=== PATIENT | male | born 1930 | race Caucasian/White ===

== ENCOUNTER 2017-05-24 21:28 | Inpatient (IN) ==
[2017-05-24] MEDS ORDERED: ONDANSETRON 4 MG/2 ML INJECTION IVP PRN (21:34)
--- OUTSIDE RECORDS SUMMARY | 2017-05-24 22:53 | External Medical Summary | CCD ---
:1930 Author Name ELIZABETH ROUSE Address [address] [place] [phone] Care Team Providers Name Role Phone NBA [place] Attending Physician Unavailable Vital Signs Unknown or Not Available. Allergies Unknown or Not Available. Procedures Unknown or Not Available. History of Immunizations Unknown or Not Available. Problems Unknown or Not Available. Results CBC W/ DIFF - Collect Date/Time: 09/19/2016 10:50 Test Name Code Test Result Test Units Test Ref Range WBC 7.7 x10^3 L=4.8 H=10.8 RBC 4.37 x10^6 L=4.70 H=6.10 HEMOGLOBIN 13.5 g/dL L=14.0 H=18.0 HEMATOCRIT 40.9 % L=42.0 H=52.0 MCV 94 fL L=80 H=100 MCH 30.8 pg L=27.0 H=33.0 MCHC 33.0 g/dL L=33.0 H=37.0 RDW 14.5 % L=11.5 H=14.5 PLATELETS 345 x10^3 L=150 H=450 MPV 7.5 fL L=7.8 H=11.0 NEUTROPHILS 72.5 % L=40.0 H=80.0 LYMPHOCYTES 17.9 % L=20.0 H=45.0 MONOCYTES 8.7 % L=0.0 H=10.0 EOSINOPHILS 0.5 % L=0.0 H=5.0 BASOPHILS 0.4 % L=0.0 H=2.0 REFLEX MAN DIFF NO N/A PT/INR - Collect Date/Time: 09/19/2016 10:50 Test Name Code Test Result Test Units Test Ref Range PT 16.7 Secs L=9.4 H=11.0 INR 1.66 L=0.00 H=4.00 Active Medications Unknown or Not Available. Medications Administered During Visit Unknown or Not Available. Encounters Encounter Diagnosis Diagnosis Code Start Date Anemia, unspecified D649 09/19/2016 Social History Smoking Status Code Start Date End Date Never smoker [id number] Patient Decision Aids Unknown or Not Available. Discharge Instructions You were admitted to [facility] on 09/19/2016 11:30 with a principal diagnosis of Anemia, unspecified You had the following tests done: CBC W/ DIFF PT/INR You were discharged from [facility] on 09/19/2016 11:31 Should you have any questions prior to discharge, please contact a member of your healthcare team. If you have left the hospital and have any questions, please contact your primary care physician. Chief Complaint and Reason For Visit Chief Complaint Date of Onset LAB Function Status Unknown or Not Available. Plan of Care Unknown or Not Available. Referral/Transition of Care Unknown or Not Available.
--- OUTSIDE RECORDS SUMMARY | 2017-05-24 22:53 | External Medical Summary | Referral Summary ---
:1930 Author Organization [facility] Address [address] [place] [address] Care Team Providers Name Role Phone Clinton Foley Primary Care Physician Encounter [facility] [id number] Date(s): 02/11/15 - 02/11/15 [facility] [address] [place] [address]- [place] Discharge Diagnosis: Neoplasm of uncertain behavior Discharge Diagnosis: Basal cell carcinoma Discharge Diagnosis: Neoplasm of uncertain behavior Discharge Diagnosis: Encounter for removal of sutures Discharge Disposition: 01-Home or Self Care Attending Physician: Vishnu Londono MD Admitting Physician: Vishnu Londono MD Vital Signs Most recent to oldest [Reference Range]: 1 Temperature Oral [35.8-37.3 degC] 36.6 degC (02/11/15 12:57 PM) Blood Pressure [90-140/60-90 mmHg] 110/74 mmHg (02/11/15 12:57 PM) Problem List Condition Effective Dates Status Health Status Informant Hypothyroidism(Confirmed) Resolved Blood clot(Confirmed)1 Resolved Deep venous thrombosis right Active leg(Confirmed)2 Dementia(Confirmed) Resolved Diverticulosis(Confirmed) Resolved Fall from roof no injury(Confirmed)3 Active Fatigue-benign and Active multifactorial(Confirmed)4 Hearing loss(Confirmed) Resolved Hernia(Confirmed)5 Resolved Hypercholesterolemia(Confirmed) Resolved Hyperlipidemia(Confirmed) Resolved Hyperplasia of prostate(Confirmed)6 Resolved Hypertrophy of prostate w/o urinary Active obstruction(Confirmed)7 Pulmonary embolism(Confirmed) Resolved Benign keratoses(Confirmed)8 Active HAQ-ftemjffoci-crrhxd(Confirmed)9 Active Spinal stenosis(Confirmed) Resolved 1Blood Clots in right qdh9Ejy conversion document.3See conversion document.4See conversion document.3q58Dfjkzvbtyix prostate w/o urinary qixpjdzwsuh2mix NextGen.8See conversion document.9See conversion document. Allergies, Adverse Reactions, Alerts Substance Reaction Severity Status acetaminophen-HYDROcodone Adverse Reaction Medium Active memantine Weakness Active Medications Aricept 10 mg oral tablet 1 tabs, Oral, Daily, # 90 tabs, 3 Refill(s), Pharmacy: [facility], 1 tabs Oral Daily Start Date: 10/15/14 Status: OrderedExelon 9.5 mg/24 hr transdermal film, extended release 1 patches, TransDermal, Daily, # 90 patches, 3 Refill(s), Pharmacy: [facility] Start Date: 10/15/14 Status: Orderedmultivitamin 1 tabs, Oral, Daily, 0 Refill(s) Start Date: 04/21/14 Status: OrderedTylenol Extra Strength 325 mg, Take 2 tabs po bid prn, 0 Refill(s) Start Date: 04/21/14 Status: Orderedwarfarin 3 mg oral tablet See Instructions, 1 tabs Oral 5 days/wk as directed, # 90 tabs, 3 Refill(s), Pharmacy: [facility], 1 tabs Oral 5 days/wk as directed Start Date: 07/20/15 Status: Orderedwarfarin 4 mg oral tablet 1 tabs, Oral, Daily, # 90 tabs, 3 Refill(s), Pharmacy: [facility], 1 tabs Oral Daily Start Date: 10/15/14 Status: Orderedwarfarin 4 mg oral tablet 4 mg 1 tabs, Oral, Mon/We/Fr, # 60 tabs, 0 Refill(s), Pharmacy: [facility], 1 tabs Oral Mon/We/Fr Start Date: 04/14/15 Status: Orderedwarfarin 5 mg oral tablet 1 tabs, Oral, Daily, # 90 tabs, 2 Refill(s), Pharmacy: [facility], 1 tabs Oral Daily Start Date: 07/07/14 Status: Ordered Results No data available for this section Immunizations Vaccine Date Refusal Reason influenza virus vaccine, inactivated 05/30/15 pneumococcal 13-valent conjugate vaccine 09/28/14 pneumococcal 23-polyvalent vaccine 02/20/05 tetanus/diphtheria/pertussis, acel(Tdap) 03/29/14 Procedures Procedure Date Related Diagnosis Body Site Biopsy of skin, subcutaneous tissue and/or mucous 02/11/15 membrane (including simple closure), unless otherwise listed; single lesion Biopsy of skin, subcutaneous tissue and/or mucous 02/11/15 membrane (including simple closure), unless otherwise listed; single lesion Biopsy of skin, subcutaneous tissue and/or mucous 02/11/15 membrane (including simple closure), unless otherwise listed; single lesion Excision, malignant lesion including margins, 02/11/15 trunk, arms, or legs; excised diameter 2.1 to 3.0 cm Repair, intermediate, wounds of scalp, axillae, 02/11/15 trunk and/or extremities (excluding hands and feet); 2.6 cm to 7.5 cm.. Circumcision1 Colonoscopy2 Orchiectomy3 Tonsillectomy 1aqocpf4bqvz in January, NO polyps seen.3right Social History Social History Type Response Smoking Status Never smoker Assessment and Plan Extracted from: Title: Office Visit Note Author: Vishnu Londono MD Date: 02/11/15 Assessment/Plan 1.Basal cell carcinoma I excised the 1.4x1 cm scar site with 0.4 cm margins on the right mid back area. Excised diameter was 2.2x 1.8cm. I did an intermediate layered closure with buried 4-0 P DS and top 4-0 Prolene sutures with a final wound repair length of 4.5cm. [place] and wants to have his stitches out locally around - 23 February. He'll follow-up in 6 months for skin exam or sooner for any problems Options/risks/benefits of the procedure were discussed and explained and consent was obtained. Specifically discussed risks of scarring, abnormal scarring, skin changes such as color or texture jorge ges, recurrence, incomplete removal, bleeding, infection, need for further treatment, and other unexpected risks/outcomes of these types of skin procedures. Final timeout performed. Site(s) for exci bennie were prepared by cleaning and injecting each site with <5cc of buffered lidocaine with epi 1:100,000. Site was excised with margins with scalpel/scissors/forceps in usual fashion to the level of the subcutaneous fat. Wound edges were undermined. Hemostasis was obtained with hyfrecation as needed. Layered closure was performed with buried absorbable dermal sutures and top nonabsorbable sutures. Ointment and bandages placed where needed. Wound care instructions given. Ordered: Exc Mal Les Trunk Arm Leg 2.1-3.0cm 59110 Intermediate Repair Wounds; Scalp Trunk Extremities 2.6-7.5cm 67021 2.Neoplasm of uncertain behavior Rule out nonmelanoma skin cancer near the left vertex. Shave biopsy today. I can excise the site if necessary. Options/risks/benefits of the procedure were discussed and explained and consent was obtained. Specifically discussed risks of scarring, abnormal scarring, skin changes such as color or texture jorge ges, recurrence, bleeding, infection, need for further treatment, and other unexpected risks/outcomes of these types of skin procedures. Final timeout performed. Site(s) for biopsy were prepared by cleaning and injecting each site with <1cc of buffered lidocaine with epi 1: 100,000. Site(s) were removed with shave blade in usual fashion. Hemostasis was obtained with drysol and/or hyfrecation as needed. Ointment and bandages placed where needed. Wound care instructions given Ordered: Biopsy Of Skin, Single Lesion [id number]
--- OUTSIDE RECORDS SUMMARY | 2017-05-24 22:53 | External Medical Summary | Referral Summary ---
:1930 Author Organization [facility] Address [address] [place] [address] Care Team Providers Name Role Phone Clinton Foley Primary Care Physician Encounter [facility] Date(s): 05/30/15 - 05/30/15 [facility] [address], [place] [address] Discharge Diagnosis: Hyperlipidemia Discharge Diagnosis: Medicare annual wellness visit, subsequent Discharge Diagnosis: Deep venous thrombosis of leg Discharge Diagnosis: Hypothyroidism Discharge Disposition: 01-Home or Self Care Attending Physician: Clinton Foley MD Admitting Physician: Clinton Foley MD Referring Physician: Clinton Foley MD Vital Signs Most recent to oldest [Reference Range]: 1 Peripheral Pulse Rate [60-100 bpm] 64 bpm (05/30/15 9:14 AM) Blood Pressure [90-140/60-90 mmHg] 110/76 mmHg (05/30/15 9:14 AM) Problem List Condition Effective Dates Status Health Status Informant Hypothyroidism(Confirmed) Resolved Blood clot(Confirmed)1 Resolved Deep venous thrombosis right Active leg(Confirmed)2 Dementia(Confirmed) Resolved Diverticulosis(Confirmed) Resolved Fall from roof no injury(Confirmed)3 Active Fatigue-benign and Active multifactorial(Confirmed)4 Hearing loss(Confirmed) Resolved Hernia(Confirmed)5 Resolved Hypercholesterolemia(Confirmed) Resolved Hyperlipidemia(Confirmed) Resolved Hyperplasia of prostate(Confirmed)6 Resolved Hypertrophy of prostate w/o urinary Active obstruction(Confirmed)7 Pulmonary embolism(Confirmed) Resolved Benign keratoses(Confirmed)8 Active TTU-nxhcpvzifc-xiadij(Confirmed)9 Active Spinal stenosis(Confirmed) Resolved 1Blood Clots in right jod2Lwz conversion document.3See conversion document.4See conversion document.1x84Pswmuhcwupc prostate w/o urinary oecuzyylwst4gxn NextGen.8See conversion document.9See conversion document. Allergies, Adverse Reactions, Alerts Substance Reaction Severity Status acetaminophen-HYDROcodone Adverse Reaction Medium Active memantine Weakness Active Medications Aricept 10 mg oral tablet 1 tabs, Oral, Daily, # 90 tabs, 3 Refill(s), Pharmacy: [facility], 1 tabs Oral Daily Start Date: 10/15/14 Status: OrderedExelon 9.5 mg/24 hr transdermal film, extended release 1 patches, TransDermal, Daily, # 90 patches, 3 Refill(s), Pharmacy: [facility] Start Date: 10/15/14 Status: Orderedmultivitamin 1 tabs, Oral, Daily, 0 Refill(s) Start Date: 04/21/14 Status: OrderedTylenol Extra Strength 325 mg, Take 2 tabs po bid prn, 0 Refill(s) Start Date: 04/21/14 Status: Orderedwarfarin 3 mg oral tablet 3 mg 1 tabs, Oral, Mon/Thurs, # 30 tabs, 2 Refill(s), Pharmacy: [facility] RX FOR THE 4 MG WARFARIN, 1 tabs Oral Mon/Thurs Start Date: 04/14/15 Status: Orderedwarfarin 4 mg oral tablet 1 tabs, Oral, Daily, # 90 tabs, 3 Refill(s), Pharmacy: [facility], 1 tabs Oral Daily Start Date: 10/15/14 Status: Orderedwarfarin 4 mg oral tablet 4 mg 1 tabs, Oral, Mon/We/Fr, # 60 tabs, 0 Refill(s), Pharmacy: [facility], 1 tabs Oral Mon/We/Fr Start Date: 04/14/15 Status: Orderedwarfarin 5 mg oral tablet 1 tabs, Oral, Daily, # 90 tabs, 2 Refill(s), Pharmacy: [facility], 1 tabs Oral Daily Start Date: 07/07/14 Status: Ordered Results Hematology Most recent to oldest [Reference Range]: 1 WBC [4.8-10.8 10*3/uL] 7.3 10*3/uL (05/30/15 10:37 AM) RBC [4.60-6.20] 4.93 (05/30/15 10:37 AM) Hgb [14.0-18.0 gm/dL] 16.0 gm/dL (05/30/15 10:37 AM) Hct [42.0-52.0 %] 45.3 % (05/30/15 10:37 AM) MCV [82.0-99.0 fL] 91.9 fL (05/30/15 10:37 AM) MCH [27.0-32.0 pg] 32.5 pg *HI* (05/30/15 10:37 AM) MCHC [32.0-36.0 gm/dL] 35.3 gm/dL (05/30/15 10:37 AM) RDW [11.5-14.5 %] 13.8 % (05/30/15 10:37 AM) Platelet [150-400 10*3/uL] 179 10*3/uL (05/30/15 10:37 AM) MPV [8.8-14.8 fL] 10.0 fL (05/30/15 10:37 AM) Immature Granulocytes [0.0-1.0 %] 0.3 % (05/30/15 10:37 AM) Neutrophils [51-75 %] 57 % (05/30/15 10:37 AM) Lymphocytes [20-46 %] 32 % (05/30/15 10:37 AM) Monocytes [4-11 %] 10 % (05/30/15 10:37 AM) Eosinophils [0-4 %] 1 % (05/30/15 10:37 AM) Basophils [0-2 %] 0 % (05/30/15 10:37 AM) Neutro Absolute [1.90-7.00 10*3] 4.14 10*3 (05/30/15 10:37 AM) Lymph Absolute [0.80-3.30 10*3] 2.29 10*3 (05/30/15 10:37 AM) [place] Absolute [0.30-1.00 10*3] 0.71 10*3 (05/30/15 10:37 AM) Eos Absolute [0.00-0.50 10*3] 0.09 10*3 (05/30/15 10:37 AM) Baso Absolute [0.00-0.20 10*3] 0.02 10*3 (05/30/15 10:37 AM) Chemistry Most recent to oldest [Reference Range]: 1 Sodium Lvl [135-144 mEq/L] 141 mEq/L (05/30/15 10:37 AM) Potassium Lvl [3.5-5.2 mEq/L] 4.6 mEq/L (05/30/15 10:37 AM) Chloride [99-111 mEq/L] 111 mEq/L (05/30/15 10:37 AM) CO2 [23-31 mEq/L] 19 mEq/L *LOW* (05/30/15 10:37 AM) AGAP [3-20] 11 (05/30/15 10:37 AM) BUN [8-26 mg/dL] 19 mg/dL (05/30/15 10:37 AM) Glucose Lvl [70-99 mg/dL] 90 mg/dL (05/30/15 10:37 AM) Creatinine Lvl [0.72-1.25 mg/dL] 1.02 mg/dL (05/30/15 10:37 AM) eGFR [>60 mL/min] >60 mL/min 1 (05/30/15 10:37 AM) Calcium Lvl [8.9-10.5 mg/dL] 9.7 mg/dL (05/30/15 10:37 AM) Albumin Lvl [3.4-4.8 gm/dL] 4.0 gm/dL (05/30/15 10:37 AM) Total Protein [6.2-8.1 gm/dL] 7.3 gm/dL (05/30/15 10:37 AM) Globulin [1.8-4.0 gm/dL] 3.3 gm/dL (05/30/15 10:37 AM) ALT [0-55 U/L] 21 U/L (05/30/15 10:37 AM) AST [5-34 U/L] 27 U/L 2 (05/30/15 10:37 AM) Alk Phos [40-150 U/L] 60 U/L (05/30/15 10:37 AM) Bili Total [0.2-1.2 mg/dL] 0.7 mg/dL (05/30/15 10:37 AM) Chol [0-199 mg/dL] 195 mg/dL (05/30/15 10:37 AM) Trig [0-149 mg/dL] 176 mg/dL *HI* (05/30/15 10:37 AM) HDL [40-84 mg/dL] 48 mg/dL (05/30/15 10:37 AM) LDL [0-130 mg/dL] 112 mg/dL (05/30/15 10:37 AM) VLDL Cholesterol [0-28 mg/dL] 35 mg/dL *HI* (05/30/15 10:37 AM) Cardiac Risk [0.0-5.7] 4.1 (05/30/15 10:37 AM) TSH with Reflex Free T4 [0.35-4.94] 3.61 (05/30/15 10:37 AM) 1Result Comment: Multiply eGFR results by 1.21 for race.2Result Comment: Specimen slighly hemolyzed. LDH, AST and Direct Bilirubin may be affected. Immunizations Vaccine Date Refusal Reason influenza virus vaccine, inactivated 05/30/15 pneumococcal 13-valent conjugate vaccine 09/28/14 pneumococcal 23-polyvalent vaccine 02/20/05 tetanus/diphtheria/pertussis, acel(Tdap) 03/29/14 Procedures Procedure Date Related Diagnosis Body Site Circumcision1 Colonoscopy2 Orchiectomy3 Tonsillectomy [id number] in January, NO polyps seen.3right Social History Social History Type Response Smoking Status Never smoker Assessment and Plan Extracted from: Title: Office Visit Note Author: Clinton Foley MD Date: 05/30/15 Assessment/Plan Deep venous thrombosis of leg 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 Ordered: CBC w/ Differential Return to Clinic Hyperlipidemia Lipid profile to be done this morning and I'll let him know the results. Ordered: Comprehensive Metabolic Panel Lipid Panel Office Visit Level 4 Est [id number] Return to Clinic Hypothyroidism Thyroid level will be checked today and I'll adjust his thyroid replacement therapy accordingly. Ordered: Comprehensive Metabolic Panel Office Visit Level 4 Est 68711 Return to Clinic TSH with Reflex Free T4 Medicare annual wellness visit, subsequent We are completing the Medicare annual wellness evaluation at the present time. Were giving him his flu shot. He's had the Prevnar 13. If all of his l ab looks okay Eduardo see him back in 6 months or as needed. Otherwise I did accomplish his annual history and physical exam today. Ordered: Annual Wellness exam Subsequent [id number] Referrals to Other Providers Referred by: Clinton Foley MD
--- OUTSIDE RECORDS SUMMARY | 2017-05-24 22:53 | External Medical Summary | Referral Summary ---
:1930 Author Organization [facility] Address [address] [place] [address] Care Team Providers Name Role Phone Clinton Foley Primary Care Physician Encounter [facility] Date(s): 09/09/16 - 09/24/16 [facility] [address] [place] [address]- [place] Discharge Disposition: 01-Home or Self Care Attending Physician: Vishnu Law MD Admitting Physician: Vishnu Law MD Vital Signs No data available for this section Problem List Condition Effective Dates Status Health Status Informant Acute pain(Confirmed) Active At risk for infection(Confirmed)1 Active At risk of pressure sore(Confirmed) Active Hypothyroidism(Confirmed) Resolved Blood clot(Confirmed)2 Resolved Cardiac disorder(Confirmed)3 Active Deep venous thrombosis right Active leg(Confirmed)4 Dementia(Confirmed) Resolved Diverticulosis(Confirmed) Resolved Fall from roof no injury(Confirmed)5 Active Hearing loss(Confirmed) Resolved Hernia(Confirmed)6 Resolved Hyperplasia of prostate(Confirmed)7 Resolved Hypertrophy of prostate w/o urinary Active obstruction(Confirmed)8 Hyperlipidemia(Confirmed) Resolved Pulmonary embolism(Confirmed) Resolved Benign keratoses(Confirmed)9 Active Spinal stenosis(Confirmed) Resolved 1Problem added automatically by system based on initiation of At Risk for Infection in Nutrition Planof Srky0Bbmgt Clots in right rse6Okkizxb added automatically by system based on initiation of Cardiac Output/Ineffective Cardiac Perfusion Plan of Ukgm5Dor conversion document.5See conversion document.2n99Huhtofmmymc prostate w/o urinary dlqrkbaxccp8mxi NextGen.9See conversion document. Allergies, Adverse Reactions, Alerts Substance Reaction Severity Status acetaminophen-HYDROcodone Adverse Reaction Medium Active memantine Weakness Active Medications aspirin 81 mg oral tablet, chewable 81 mg 1 tabs, Oral, Daily, 0 Refill(s) Start Date: 09/14/16 Status: OrderedCardizem CD 180 mg/24 hours oral capsule, extended release 180 mg 1 caps, Oral, Daily, # 30 caps, 0 Refill(s), Pharmacy: [facility] , 1 caps Oral Daily Start Date: 09/14/16 Status: OrderedCoumadin 5 mg oral tablet 5 mg 1 tabs, Oral, Daily, # 30 tabs, 0 Refill(s), Pharmacy: [facility], 1 tabs Oral Daily Start Date: 09/14/16 Status: Ordereddonepezil 10 mg oral tablet 10 mg 1 tabs, Oral, Bedtime (once a day), # 30 tabs, 0 Refill(s) Start Date: 09/09/16 Status: OrderedLovenox 100 mg/mL injectable solution 100 mg 1 mL, SubCutaneous, q12hr, # 10 Each, 0 Refill(s), other reason (Rx) Start Date: 09/14/16 Status: OrderedMiraLax 17 g 1 packets, Oral, Daily, 0 Refill(s) Start Date: 09/14/16 Status: Orderedmultivitamin 1 tabs, Oral, Daily, 0 Refill(s) Start Date: 04/21/14 Status: Orderedrivastigmine 9.5 mg/24 hr transdermal film, extended release 1 patches, TransDermal, Daily, # 90 patches, 2 Refill(s), Pharmacy: [facility] Start Date: 09/17/16 Status: Ordered Results No data available for this section Immunizations Given and Recorded Vaccine Date Status Refusal Reason influenza virus vaccine, inactivated 05/30/15 Given pneumococcal 13-valent conjugate vaccine 09/28/14 Given pneumococcal 23-polyvalent vaccine 02/20/05 Recorded tetanus/diphtheria/pertussis, acel(Tdap) 03/29/14 Recorded Procedures Procedure Date Related Diagnosis Body Site Cholecystectomy Laparoscopic1 09/12/16 Laparoscopy, surgical; cholecystectomy.. 09/12/16 Catheterization Left Heart with Coronary 09/11/16 Angiography2 Circumcision3 Colonoscopy4 History of hernia repair Open fracture of upper arm Orchiectomy5 Repair of hip Tonsillectomy 1auto-populated from documented surgical [id number] from documented surgical [id number] in January, NO polyps seen.5right Social History Social History Type Response Smoking Status Never smoker Assessment and Plan No data available for this section
--- OUTSIDE RECORDS SUMMARY | 2017-05-24 22:53 | External Medical Summary | Referral Summary ---
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 Discharge Diagnosis: AK (actinic keratosis) Discharge Disposition: 01-Home or Self Care Attending Physician: Vishnu Londono MD Admitting Physician: Vishnu Londono MD Referring Physician: Clinton Foley MD Vital Signs No data available for [...] obstruction(Confirmed)7 Pulmonary embolism(Confirmed) Resolved Benign keratoses(Confirmed)8 Active APD-ekeqitxovh-txrzvi(Confirmed)9 Active Spinal stenosis(Confirmed) Resolved 1Blood Clots in right fwx8Vwk conversion document.3See conversion document.4See conversion document.8c62Eydlzvpszlz prostate w/o urinary ratoqxgwxfc2nqf NextGen.8See conversion document.9See conversion document. Allergies, Adverse Reactions, Alerts Substance Reaction Severity Status acetaminophen-HYDROcodone Adverse Reaction Medium Active memantine Weakness Active Medications Aricept 10 mg oral tablet 10 mg 1 tabs, Oral, Daily, # 90 tabs, 3 Refill(s), Pharmacy: [facility], 1 tabs Oral Daily Start Date: 10/31/15 Status: OrderedExelon 9.5 mg/24 hr transdermal film, extended release 1 patches, TransDermal, Daily, # 90 patches, 3 Refill(s), Pharmacy: [facility] Start Date: 10/31/15 Status: Orderedmultivitamin 1 tabs, Oral, Daily, 0 Refill(s) Start Date: 04/21/14 Status: OrderedTylenol Extra Strength 325 mg, Take 2 tabs po bid prn, 0 Refill(s) Start Date: 04/21/14 Status: Orderedwarfarin 3 mg oral tablet See Instructions, 1 tabs Oral 5 days/wk as directed, # 90 tabs, 3 Refill(s), Pharmacy: [facility], 1 tabs Oral 5 days/wk as directed Start Date: 10/31/15 Status: Orderedwarfarin 4 mg oral tablet 4 mg 1 tabs, Oral, Sat/, # 60 tabs, 0 Refill(s), Pharmacy: [facility], 1 tabs Oral Sat/ Start Date: 04/14/15 Status: Ordered Results No data available for this section Immunizations Vaccine Date Refusal Reason influenza virus vaccine, inactivated 05/30/15 pneumococcal 13-valent conjugate vaccine 09/28/14 pneumococcal 23-polyvalent vaccine 02/20/05 tetanus/diphtheria/pertussis, acel(Tdap) 03/29/14 Procedures Procedure Date Related Diagnosis Body Site Destruction (eg, laser surgery, electrosurgery, 04/22/15 cryosurgery, chemosurgery, surgical curettement), premalignant lesions (eg, actinic keratoses); first lesion Destruction (eg, laser surgery, electrosurgery, 04/22/15 cryosurgery, chemosurgery, surgical curettement), premalignant lesions (eg, actinic keratoses); second through 14 lesions, each (List separately in addition to code for first lesion).. Circumcision1 Colonoscopy2 Orchiectomy3 Tonsillectomy 8ueetnx3ygob in January, NO polyps seen.3right Social History Social History Type Response Smoking Status Never smoker Assessment and Plan Extracted from: Title: Office Visit Note Author: Vishnu Londono MD Date: 04/22/15 Assessment/Plan 1.AK (actinic keratosis) We discussed field treatments for his scalp and face but he is not interested in any field treatment at this time and wants to do cryotherapy alone. I froze 9 AK's on th e scalp and face and neck with liquid nitrogen and he will follow-up in 6 months or sooner for any sites of concern Discussed diagnosis and prognosis and treatment of actinic keratoses. Patient elected for cryotherapy. Discussed options/risks/benefits of the procedure. Specifically discussed risks of scarring , abnormal scarring, skin changes such as color or texture changes, blistering , recurrence, bleeding, infection, need for further treatment, and other unexpected risks/outcomes of these types of skin pr ocedures. Patient expressed understanding and consented to the procedure(s). I froze [address] for approximately 5-7 seconds each. Wound care instructions given. Discussed/educated patie nt on sun protection measures, importance of sun protection, and need for self- skin examination. Recommended regular (at least yearly, or sooner if directed in other follow-up instructions) dermatolog y follow-up examinations due to high-risk of more AK's and risk of skin cancers , and recommend follow-up dermatology examination for any changing or concerning moles, growths, or skin changes of concern. Ordered: Destruction premalignant lesion 1st 44107 Destruction premalignant lesion 2-14, Each 20389 2.Squamous cell carcinoma in situ There is no obvious persistent or recurrent squamous cell carcinoma or scram cell carcinoma in situ at the scar site on the left scalp. He is not interested in further therapy at the site and prefers to monitor. We discussed options and risks in detail Ordered: Office Visit Level 3 Est 24215
--- OUTSIDE RECORDS SUMMARY | 2017-05-24 22:53 | External Medical Summary | CCD ---
:1930 Author Name ELIZABETH ROUSE Address [address], [place] [id number] Care Team Providers Name Role Phone LAY ARANGO Phu Attending Physician Unavailable Vital Signs Unknown or Not Available. Allergies Unknown or Not Available. Procedures Unknown or Not Available. History of Immunizations Unknown or Not Available. Problems Unknown or Not Available. Results COMP METABOLIC - Collect Date/Time: 09/17/2016 16:00 Test Name Code Test Result Test Units Test Ref Range GLUCOSE 102 mg/dL L=70 H=110 BUN 13 mg/dL L=7 H=18 CREATININE 1.05 mg/dL L=0.60 H=1.30 AGE 86 YEARS GFR 67.3 L=60.0 H=120 SODIUM 142 mmol/L L=136 H=145 POTASSIUM 4.1 mmol/L L=3.5 H=5.1 CHLORIDE 105 mmol/L L=98 H=107 CO2 26 mmol/L L=21 H=32 CALCIUM 9.0 mg/dL L=8.5 H=10.1 AST 431 U/L L=15 H=37 ALT 382 U/L L=12 H=78 ALKALINE PHOS 369 U/L L=46 H=116 TOTAL PROTEIN 6.7 g/dL L=6.4 H=8.2 ALBUMIN 2.8 g/dL L=3.4 H=5.0 TOTAL BILI 3.50 mg/dL L=0.00 H=1.00 CBC W/ DIFF - Collect Date/Time: 09/17/2016 16:00 Test Name Code Test Result Test Units Test Ref Range WBC 6.4 x10^3 L=4.8 H=10.8 RBC 4.36 x10^6 L=4.70 H=6.10 HEMOGLOBIN 13.5 g/dL L=14.0 H=18.0 HEMATOCRIT 41.1 % L=42.0 H=52.0 MCV 94 fL L=80 H=100 MCH 30.9 pg L=27.0 H=33.0 MCHC 32.9 g/dL L=33.0 H=37.0 RDW 13.8 % L=11.5 H=14.5 PLATELETS 291 x10^3 L=150 H=450 MPV 7.6 fL L=7.8 H=11.0 NEUTROPHILS 64.5 % L=40.0 H=80.0 LYMPHOCYTES 25.4 % L=20.0 H=45.0 MONOCYTES 8.1 % L=0.0 H=10.0 EOSINOPHILS 1.1 % L=0.0 H=5.0 BASOPHILS 0.9 % L=0.0 H=2.0 REFLEX MAN DIFF NO N/A PT/INR - Collect Date/Time: 09/17/2016 16:00 Test Name Code Test Result Test Units Test Ref Range PT 18.9 Secs L=9.4 H=11.0 INR 1.87 L=0.00 H=4.00 Active Medications Unknown or Not Available. Medications Administered During Visit Unknown or Not Available. Encounters Unknown or Not Available. Social History Smoking Status Code Start Date End Date Never smoker [id number] Patient Decision Aids Unknown or Not Available. Discharge Instructions You were admitted to [facility] on 09/17/2016 16:39 You had the following tests done: CBC W/ DIFF COMP METABOLIC PT/INR You were discharged from [facility] on 09/17/2016 16:39 Should you have any questions prior to [...]
--- OUTSIDE RECORDS SUMMARY | 2017-05-24 22:53 | External Medical Summary | Referral Summary ---
:1930 Author Organization [facility] Address [address] [place] [address] Care Team Providers Name Role Phone Clinton Foley Primary Care Physician Encounter VC Date(s): 06/04/16 - 06/04/16 [facility] [address] [place] [address]- [place] Discharge Diagnosis: Hyperlipidemia Discharge Diagnosis: Spinal stenosis Discharge Diagnosis: Long-Term (Current) Use of Anticoagulants Discharge Diagnosis: Hypothyroidism Discharge Diagnosis: Medicare annual wellness visit, subsequent Discharge Disposition: 01-Home or Self Care Attending Physician: Clinton Foley MD Admitting Physician: Clinton Foley MD Vital Signs Most recent to oldest [Reference Range]: 1 Peripheral Pulse Rate [60-100 bpm] 68 bpm (06/04/16 10:20 AM) Blood Pressure [90-140/60-90 mmHg] 110/70 mmHg (06/04/16 10:20 AM) Problem List Condition Effective Dates Status Health Status Informant Hypothyroidism(Confirmed) Resolved Blood clot(Confirmed)1 Resolved Deep venous thrombosis right Active leg(Confirmed)2 Dementia(Confirmed) Resolved Diverticulosis(Confirmed) Resolved Fall from roof no injury(Confirmed)3 Active Fatigue-benign and Active multifactorial(Confirmed)4 Hearing loss(Confirmed) Resolved Hernia(Confirmed)5 Resolved Hypercholesterolemia(Confirmed) Resolved Hyperplasia of prostate(Confirmed)6 Resolved Hypertrophy of prostate w/o urinary Active obstruction(Confirmed)7 Hyperlipidemia(Confirmed) Resolved Pulmonary embolism(Confirmed) Resolved Benign keratoses(Confirmed)8 Active KOM-nqsmomtemv-lameeb(Confirmed)9 Active Spinal stenosis(Confirmed) Resolved 1Blood Clots in right cco0Cvn conversion document.3See conversion document.4See conversion document.6w05Ugudpbqfkim prostate w/o urinary ecsjzmkybzf7tjj NextGen.8See conversion document.9See conversion document. Allergies, Adverse Reactions, Alerts Substance Reaction Severity Status acetaminophen-HYDROcodone Adverse Reaction Medium Active memantine Weakness Active Medications Aricept 10 mg oral tablet 10 mg 1 tabs, Oral, Daily, # 90 tabs, 3 Refill(s), Pharmacy: [facility], 1 tabs Oral Daily Start Date: 10/31/15 Status: OrderedExelon 9.5 mg/24 hr transdermal film, extended release 1 patches, TransDermal, Daily, # 90 patches, 3 Refill(s), Pharmacy: [facility] Start Date: 10/31/15 Status: Orderedmultivitamin 1 tabs, Oral, Daily, 0 Refill(s) Start Date: 04/21/14 Status: OrderedTylenol Extra Strength 325 mg, Take 2 tabs po bid prn, 0 Refill(s) Start Date: 04/21/14 Status: Orderedwarfarin 3 mg oral tablet See Instructions, 1 tabs Oral 5 days/wk as directed, # 90 tabs, 3 Refill(s), Pharmacy: [facility], 1 tabs Oral 5 days/wk as directed Start Date: 10/31/15 Status: Orderedwarfarin 4 mg oral tablet 4 mg 1 tabs, Oral, Sat//, # 90 tabs, 3 Refill(s), Pharmacy: [facility], 1tabs Oral Sat// Start Date: 01/06/16 Status: Ordered Results Coagulation Most recent to oldest [Reference Range]: 1 INR [0.9-1.2] 1.5 *HI* (06/04/16 11:53 AM) Chemistry Most recent to oldest [Reference Range]: 1 Chol [0-199 mg/dL] 172 mg/dL (06/04/16 11:53 AM) Trig [0-149 mg/dL] 105 mg/dL (06/04/16 11:53 AM) HDL [40-84 mg/dL] 45 mg/dL (06/04/16 11:53 AM) LDL [0-130 mg/dL] 106 mg/dL (06/04/16 11:53 AM) VLDL Cholesterol [0-28 mg/dL] 21 mg/dL (06/04/16 11:53 AM) Cardiac Risk [0.0-5.7] 3.8 (06/04/16 11:53 AM) Immunizations Vaccine Date Refusal Reason influenza virus vaccine, inactivated 05/30/15 pneumococcal 13-valent conjugate vaccine 09/28/14 pneumococcal 23-polyvalent vaccine 02/20/05 tetanus/diphtheria/pertussis, acel(Tdap) 03/29/14 Procedures Procedure Date Related Diagnosis Body Site Circumcision1 Colonoscopy2 Orchiectomy3 Tonsillectomy 5aaqiru7ezyf in January, NO polyps seen.3right Social History Social History Type Response Smoking Status Never smoker Assessment and Plan Extracted from: Title: Office Visit Note Author: Clinton Foley MD Date: 06/04/16 Assessment/Plan 1.Hyperlipidemia He'll have a lipid profile done today and I'll let him know the results. Ordered: Lipid Panel Office Visit Level 4 Est 23984 Return to Clinic 2.Hypothyroidism His last thyroid check was normal so I'll just wait and reevaluate this in 6 months. Ordered: Lipid Panel Office Visit Level 4 Est 81602 Return to Clinic 3.Long-Term (Current) Use of Anticoagulants INR to be done today and will forward thisto the cardiology department for treatmentorwarfarin dose adjustment as indicated. Ordered: Office Visit Level 4 Est 62013 PT Return to Clinic 4.Spinal stenosis Spinal stenosis problem stable and okay so no change in treatment. Ordered: Office Visit Level 4 Est 68744 Return to Clinic 5.Medicare annual wellness visit, subsequent We did complete the Medicare annual wellness evaluation. He's had his flu shot. He's had both pneumonia shots. His lab looks okay all see him ba ck in 6 months. I made no change in his medications today. I did accomplish his annual history and physical exam today. Ordered: Annual Wellness exam Subsequent G0439 Office Visit Level 4 Est 88695 Return to Clinic Referrals to Other Providers Referred by: Clinton Foley MD
--- OUTSIDE RECORDS SUMMARY | 2017-05-24 22:53 | External Medical Summary | CCD ---
:1930 Author Name ELIZABETH ROUSE Address [address], [place] [id number] Care Team Providers Name Role Phone NBA LAY Bay Attending Physician Unavailable Vital Signs Unknown or Not Available. Allergies Unknown or Not Available. Procedures Unknown or Not Available. History of Immunizations Unknown or Not Available. Problems Unknown or Not Available. Results PT/INR - Collect Date/Time: 09/24/2016 11:56 Test Name Code Test Result Test Units Test Ref Range PT 18.3 Secs L=9.4 H=11.0 INR 1.81 L=0.00 H=4.00 PT/INR - Collect Date/Time: 09/21/2016 13:30 Test Name Code Test Result Test Units Test Ref Range PT 16.8 Secs L=9.4 H=11.0 INR 1.67 L=0.00 H=4.00 Active Medications Unknown or Not Available. Medications Administered During Visit Unknown or Not Available. Encounters Encounter Diagnosis Diagnosis Code Start Date long term care pharmacist (current) use of Z7901 09/21/2016 anticoagulants Social History Smoking Status Code Start Date End Date Never smoker [id number] Patient Decision Aids Unknown or Not Available. Discharge Instructions You were admitted to [facility] on 09/21/2016 15:11 with a principal diagnosis of snf (current) use of anticoagulants You had the following tests done: PT/ INR PT/INR You were discharged from [facility] on 09/25/2016 23:59 Should you have any questions prior to discharge, please contact a member of your healthcare team. If you have left the hospital and have any questions, please contact your primary care physician. Chief Complaint and Reason For Visit Chief Complaint Date of Onset RECURRING LAB 09/24/2016 Function Status Unknown or Not Available. Plan of Care Unknown or Not Available. Referral/Transition of Care Unknown or Not Available.
--- OUTSIDE RECORDS SUMMARY | 2017-05-24 22:54 | External Medical Summary | Referral Summary ---
:1930 Author Organization [facility] Address [address] [place] [address] Care Team Providers Name Role Phone Clinton Foley Primary Care Physician Encounter VC Date(s): 01/09/16 - 01/09/16 [facility] [address] [place] [address]- [place] Discharge Diagnosis: Syncope Discharge Diagnosis: Hypothyroidism Discharge Diagnosis: Deep venous thrombosis of leg Discharge Diagnosis: Hyperlipidemia, mixed Discharge Disposition: 01-Home or Self Care Attending Physician: Clinton Foley MD Admitting Physician: Clinton Foley MD Referring Physician: Clinton Foley MD Vital Signs Most recent to oldest [Reference Range]: 1 Peripheral Pulse Rate [60-100 bpm] 60 bpm (01/09/16 10:26 AM) Blood Pressure [90-140/60-90 mmHg] 124/80 mmHg (01/09/16 10:26 AM) Problem List Condition Effective Dates Status Health Status Informant Hypothyroidism(Confirmed) Resolved Blood clot(Confirmed)1 Resolved Deep venous thrombosis right Active leg(Confirmed)2 Dementia(Confirmed) Resolved Diverticulosis(Confirmed) Resolved Fall from roof no injury(Confirmed)3 Active Fatigue-benign and Active multifactorial(Confirmed)4 Hearing loss(Confirmed) Resolved Hernia(Confirmed)5 Resolved Hypercholesterolemia(Confirmed) Resolved Hyperlipidemia(Confirmed) Resolved Hyperplasia of prostate(Confirmed)6 Resolved Hypertrophy of prostate w/o urinary Active obstruction(Confirmed)7 Pulmonary embolism(Confirmed) Resolved Benign keratoses(Confirmed)8 Active UQS-oqbfnubcdr-newovp(Confirmed)9 Active Spinal stenosis(Confirmed) Resolved 1Blood Clots in right elt3Mmd conversion document.3See conversion document.4See conversion document.3b85Sdwdnxmqnkl prostate w/o urinary oypefwuzwcd3mcv NextGen.8See conversion document.9See conversion document. Allergies, Adverse Reactions, Alerts Substance Reaction Severity Status acetaminophen-HYDROcodone Adverse Reaction Medium Active memantine Weakness Active Medications Aricept 10 mg oral tablet 10 mg 1 tabs, Oral, Daily, # 90 tabs, 3 Refill(s), Pharmacy: [facility], 1 tabs Oral Daily Start Date: 10/31/15 Status: OrderedExelon 9.5 mg/24 hr transdermal film, extended release 1 patches, TransDermal, Daily, # 90 patches, 3 Refill(s), Pharmacy: [facility] Start Date: 10/31/15 Status: Orderedmultivitamin 1 tabs, Oral, Daily, 0 Refill(s) Start Date: 04/21/14 Status: OrderedTylenol Extra Strength 325 mg, Take 2 tabs po bid prn, 0 Refill(s) Start Date: 04/21/14 Status: Orderedwarfarin 3 mg oral tablet See Instructions, 1 tabs Oral 5 days/wk as directed, # 90 tabs, 3 Refill(s), Pharmacy: [facility], 1 tabs Oral 5 days/wk as directed Start Date: 10/31/15 Status: Orderedwarfarin 4 mg oral tablet 4 mg 1 tabs, Oral, Sat//Fr, # 90 tabs, 3 Refill(s), Pharmacy: [facility], 1tabs Oral Sat// Start Date: 01/06/16 Status: Ordered Results Hematology Most recent to oldest [Reference Range]: 1 WBC [4.8-10.8 10*3/uL] 6.8 10*3/uL (01/09/16 11:26 AM) RBC [4.60-6.20] 4.85 (01/09/16 11:26 AM) Hgb [14.0-18.0 gm/dL] 15.8 gm/dL (01/09/16 11:26 AM) Hct [42.0-52.0 %] 46.0 % (01/09/16 11:26 AM) MCV [82.0-99.0 fL] 94.8 fL (6/13/16 11:26 AM) MCH [27.0-32.0 pg] 32.6 pg *HI* (01/09/16 AM) MCHC [32.0-36.0 gm/dL] 34.3 gm/dL (01/09/16: AM) RDW [11.5-14.5 %] 13.8 % (01/09/16: AM) Platelet [150-400 10*3/uL] 185 10*3/uL (01/09/16: AM) MPV [8.8-14.8 fL] 9.6 fL (01/09/16: AM) Immature Granulocytes [0.0-1.0 %] 0.1 % (01/09/16 AM) Neutrophils [51-75 %] 62 % (01/09/16 AM) Lymphocytes [20-46 %] 27 % (01/09/16 AM) Monocytes [4-11 %] 10 % (01/09/16 AM) Eosinophils [0-4 %] 1 % (01/09/16 AM) Basophils [0-2 %] 0 % (01/09/16: AM) Neutro Absolute [1.90-7.00 10*3] 4.25 10*3 (01/09/16: AM) Lymph Absolute [0.80-3.30 10*3] 1.84 10*3 (01/09/16: AM) [place] Absolute [0.30-1.00 10*3] 0.67 10*3 (01/09/16:26 AM) Eos Absolute [0.00-0.50 10*3] 0.04 10*3 (01/09/16:26 AM) Baso Absolute [0.00-0.20 10*3] 0.01 10*3 (01/09/16: AM) Chemistry Most recent to oldest [Reference Range]: 1 Sodium Lvl [135-144 mEq/L] 142 mEq/L (01/09/16:26 AM) Potassium Lvl [3.5-5.2 mEq/L] 4.2 mEq/L (01/09/16:26 AM) Chloride [99-111 mEq/L] 108 mEq/L (01/09/16 11:26 AM) CO2 [23-31 mEq/L] 24 mEq/L (01/09/16: AM) AGAP [3-20] 10 (01/09/16 11:26 AM) BUN [8-26 mg/dL] 21 mg/dL (01/09/16 11: AM) Glucose Lvl [70-99 mg/dL] 92 mg/dL (01/09/16: AM) Creatinine Lvl [0.72-1.25 mg/dL] 0.99 mg/dL (01/09/16 11:26 AM) eGFR [>60 mL/min] >60 mL/min 1 (01/09/16: AM) Calcium Lvl [8.9-10.5 mg/dL] 9.4 mg/dL (01/09/16: AM) Albumin Lvl [3.4-4.8 gm/dL] 4.1 gm/dL (01/09/16: AM) Total Protein [6.2-8.1 gm/dL] 6.7 gm/dL (01/09/16 11: AM) Globulin [1.8-4.0 gm/dL] 2.6 gm/dL (01/09/16 11: AM) ALT [0-55 U/L] 23 U/L (01/09/16: AM) AST [5-34 U/L] 23 U/L (01/09/16 11: AM) Alk Phos [40-150 U/L] 62 U/L (01/09/16 11:26 AM) Bili Total [0.2-1.2 mg/dL] 0.7 mg/dL (01/09/16 11: AM) TSH with Reflex Free T4 [0.35-4.94] 4.41 (01/09/16 11:26 AM) 1Result Comment: Multiply eGFR results by 1.21 for race. Immunizations Vaccine Date Refusal Reason influenza virus vaccine, inactivated 05/30/15 pneumococcal 13-valent conjugate vaccine 09/28/14 pneumococcal 23-polyvalent vaccine 02/20/05 tetanus/diphtheria/pertussis, acel(Tdap) 03/29/14 Procedures Procedure Date Related Diagnosis Body Site Circumcision1 Colonoscopy2 Orchiectomy3 Tonsillectomy [id number] in January, NO polyps seen.3right Social History Social History Type Response Smoking Status Never smoker Assessment and Plan Extracted from: Title: Office Visit Note Author: Clinton Foley MD Date: 01/09/16 Assessment/Plan 1.Syncope He had a syncopal episodethat may have just been due to some dehydration. However because he seemedslow to regain consciousnessI think he deserves at least some additional invest igation. I'll check his basic lab and get a 24-hour Holter monitor and I'll let him know the results. Otherwise his thinks he was dehydrated at that timeto some degree. I'll schedule him ba ck here in 6 months or sooner if the labor 24 Holter monitor indicated problem. Ordered: CBC w/ Differential Comprehensive Metabolic Panel Office Visit Level 4 Est 97385 TSH with Reflex Free T4 2.Deep venous thrombosis of leg He'll continue his warfarin in light of his history of DVT. Ordered: CBC w/ Differential Comprehensive Metabolic Panel Office Visit Level 4 Est 62665 Return to Clinic 3.Hypothyroidism I'll check his TSH level. Ordered: Office Visit Level 4 Est 53838 Return to Clinic TSH with Reflex Free T4 4.Hyperlipidemia, mixed His lipid status will be checked at a later date. He scheduled back in May for annual history and physical exam. Ordered: Comprehensive Metabolic Panel Office Visit Level 4 Est 32130 Return to Clinic TSH with Reflex Free T4 Referrals to Other Providers Referred by: Clinton Foley MD
--- OUTSIDE RECORDS SUMMARY | 2017-05-24 22:54 | External Medical Summary | Referral Summary ---
:1930 Author Organization [facility] Address [address] [place] [address] Care Team Providers Name Role Phone Clinton Foley Primary Care Physician Encounter VC Date(s): 01/09/16 - 01/09/16 [facility] [address] [place] [address] [place] Discharge Diagnosis: Syncope Discharge [...] obstruction(Confirmed)7 Pulmonary embolism(Confirmed) Resolved Benign keratoses(Confirmed)8 Active WGM-nweofbnrlj-pijidt(Confirmed)9 Active Spinal stenosis(Confirmed) Resolved 1Blood Clots in right tri3Dtm conversion document.3See conversion document.4See conversion document.6l15Gylnccgdwgl prostate w/o urinary tjzdwdhfsof2cya NextGen.8See conversion document.9See conversion document. Allergies, Adverse Reactions, Alerts Substance Reaction Severity Status acetaminophen-HYDROcodone Adverse Reaction Medium Active memantine Weakness Active Medications Aricept 10 mg oral tablet 10 mg 1 tabs, Oral, Daily, # 90 tabs, 3 Refill(s), Pharmacy: Pharmacy, 1 tabs Oral Daily Start Date: 10/31/15 Status: OrderedExelon 9.5 mg/24 hr transdermal film, extended release 1 patches, TransDermal, Daily, # 90 patches, 3 Refill(s), Pharmacy: Pharmacy Start Date: 10/31/15 Status: Orderedmultivitamin 1 tabs, Oral, Daily, 0 Refill(s) Start Date: 04/21/14 Status: OrderedTylenol Extra Strength 325 mg, Take 2 tabs po bid prn, 0 Refill(s) Start Date: 04/21/14 Status: Orderedwarfarin 3 mg oral tablet See Instructions, 1 tabs Oral 5 days/wk as directed, # 90 tabs, 3 Refill(s), Pharmacy: Pharmacy, 1 tabs Oral 5 days/wk as directed Start Date: 10/31/15 Status: Orderedwarfarin 4 mg oral tablet 4 mg 1 tabs, Oral, Sat//Fr, # 90 tabs, 3 Refill(s), Pharmacy: Pharmacy, 1tabs Oral Sat// Start Date: 01/06/16 [...] Absolute [0.80-3.30 10*3] 1.84 10*3 (01/09/16: AM) [place] Absolute [0.30-1.00 10*3] 0.67 10*3 (01/09/16:26 AM) [...] Diagnosis Body Site Circumcision1 Colonoscopy2 Orchiectomy3 Tonsillectomy 1fpxkju9hqyl in January, NO polyps seen.3right Social History [...] Metabolic Panel Office Visit Level 4 Est 36604 TSH with Reflex Free T4 2.Deep venous thrombosis of leg He'll continue his warfarin in light of his history of DVT. Ordered: CBC w/ Differential Comprehensive Metabolic Panel Office Visit Level 4 Est 48440 Return to Clinic 3.Hypothyroidism I'll check his TSH level. Ordered: Office Visit Level 4 Est 82559 Return to Clinic TSH with Reflex Free T4 4.Hyperlipidemia, mixed His lipid status will be checked at a later date. He scheduled back in May for annual history and physical exam. Ordered: Comprehensive Metabolic Panel Office Visit Level 4 Est 89875 Return to Clinic TSH with Reflex Free T4 Referrals to Other Providers Referred by: Clinton Foley MD
--- OUTSIDE RECORDS SUMMARY | 2017-05-24 22:54 | External Medical Summary | Referral Summary ---
:1930 Author Organization [facility] Address [address] [place] [address] Care Team Providers Name Role Phone Clinton Foley Primary Care Physician Encounter VC Date(s): 09/09/16 - 09/14/16 [facility] [address] [place] [address] Discharge Disposition: 01-Home or Self Care Attending Physician: Norah Houston DO Admitting Physician: Kimbelry Pollack MD Vital Signs Most recent to oldest [Reference Range]: 1 Temperature Oral [35.8-37.3 degC] 36.4 degC (09/14/16 8:07 AM) Temperature Temporal Artery [36.3-37.8 degC] 36.4 degC (09/12/16 2:14 PM) Peripheral Pulse Rate [60-100 bpm] 64 bpm (09/14/16 8:07 AM) Heart Rate Monitored [60-100 bpm] 102 bpm *HI* (09/12/16 5:29 PM) Respiratory Rate [14-20 br/min] 18 br/min (09/14/16 8:07 AM) Blood Pressure [90-140/60-90 mmHg] 115/70 mmHg (09/14/16 8:07 AM) Mean Arterial Pressure, Cuff 69 mmHg (09/12/16 6:31 PM) SpO2 92 % (09/14/16 8:07 AM) Remote Telemetry Ongoing (09/14/16 8:00 AM) Problem List Condition Effective Dates Status [...] At Risk for Infection in Nutrition Planof Cwgz7Bjpox Clots in right tqn2Qtrirkn added automatically by system based on initiation of Cardiac Output/Ineffective Cardiac Perfusion Plan of Iepu1Kxu conversion document.5See conversion document.2z86Fuwuntqrnfp prostate w/o urinary icyfozvxwpa7qto NextGen.9See conversion document. Allergies, Adverse Reactions, Alerts Substance Reaction Severity Status acetaminophen-HYDROcodone Adverse Reaction Medium Active memantine Weakness Active Medications aspirin 81 mg oral tablet, chewable 81 mg 1 tabs, Oral, Daily, 0 Refill(s) Start Date: 09/14/16 Status: OrderedCardizem CD 180 mg/24 hours oral capsule, extended release 180 mg 1 caps, Oral, Daily, # 30 caps, 0 Refill(s), Pharmacy: [facility] , 1 caps Oral Daily Start Date: 09/14/16 Status: OrderedCleocin HCl 300 mg oral capsule 300 mg 1 caps, Oral, q6hr, X 3 days, # 12 caps, 0 Refill(s), other reason (Rx) Start Date: 09/14/16 Stop Date: 09/17/16 Status: OrderedCoumadin 5 mg oral tablet 5 mg 1 tabs, Oral, Daily, # 30 tabs, 0 Refill(s), Pharmacy: [facility], 1 tabs Oral Daily Start Date: [...] extended release 1 patches, TransDermal, Daily, # 30 patches, 0 Refill(s) Start Date: 09/09/16 Status: Ordered Results Hematology Most recent to oldest [Reference Range]: 1 WBC [4.8-10.8 10*3/uL] 8.5 10*3/uL (09/14/16 5:19 AM) RBC [4.60-6.20] 3.78 *LOW* (09/14/16 5:19 AM) Hgb [14.0-18.0 gm/dL] 11.9 gm/dL *LOW* (09/14/16 5:19 AM) Hct [42.0-52.0 %] 35.6 % *LOW* (09/14/16 5:19 AM) MCV [82.0-99.0 fL] 94.2 fL (09/14/16 5:19 AM) MCH [27.0-32.0 pg] 31.5 pg (09/14/16 5:19 AM) MCHC [32.0-36.0 gm/dL] 33.4 gm/dL (09/14/16 5:19 AM) RDW [11.5-14.5 %] 14.5 % (09/14/16 5:19 AM) Platelet [150-400 10*3/uL] 121 10*3/uL *LOW* (09/14/16 5:19 AM) MPV [9.4-12.3 fL] 10.2 fL (09/14/16 5:19 AM) Immature Granulocytes [0.0-1.0 %] 0.2 % (09/11/16 3:43 AM) Neutrophils [51-75 %] 82 % *HI* (09/11/16 3:43 AM) Lymphocytes [20-46 %] 10 % *LOW* (09/11/16 3:43 AM) Monocytes [4-11 %] 7 % (09/11/16 3:43 AM) Eosinophils [0-4 %] 0 % (09/11/16 3:43 AM) Basophils [0-2 %] 0 % (09/11/16 3:43 AM) Neutro Absolute [1.90-7.00] 4.45 (09/11/16 3:43 AM) Lymph Absolute [0.80-3.30] 0.54 *LOW* (09/11/16 3:43 AM) Bullock Absolute [0.30-1.00] 0.40 (09/11/16 3:43 AM) Eos Absolute [0.00-0.50] 0.01 (09/11/16 3:43 AM) Baso Absolute [0.00-0.20] 0.00 (09/11/16 3:43 AM) Nucleated RBC Automated [0 /100 WBC] 0.0 /100 WBC (09/11/16 3:43 AM) Coagulation Most recent to oldest [Reference Range]: 1 INR [0.9-1.2] 1.1 (09/14/16 5:19 AM) PTT [25.0-35.0 seconds] 113.1 seconds *HI* (09/12/16 6:07 AM) Chemistry Most recent to oldest [Reference Range]: 1 Sodium Lvl [136-144 mEq/L] 139 mEq/L (09/14/16 5:19 AM) Potassium Lvl [3.6-5.1 mEq/L] 3.8 mEq/L (09/14/16 5:19 AM) Chloride [99-109 mEq/L] 108 mEq/L (09/14/16 5:19 AM) CO2 [22-32 mEq/L] 26 mEq/L (09/14/16 5:19 AM) AGAP [3-20] 5 (09/14/16 5:19 AM) BUN [4-20 mg/dL] 21 mg/dL *HI* (09/14/16 5:19 AM) Glucose Lvl [70-100 mg/dL] 97 mg/dL (09/14/16 5:19 AM) Creatinine Lvl [0.64-1.27 mg/dL] 1.19 mg/dL (09/14/16 5:19 AM) eGFR [>60] 58 1 *ABN* (09/14/16 5:19 AM) Calcium Lvl [8.6-10.0 mg/dL] 8.1 mg/dL *LOW* (09/14/16 5:19 AM) Albumin Lvl [3.5-4.8 gm/dL] 2.0 gm/dL *LOW* (09/14/16 5:19 AM) Total Protein [6.1-7.9 gm/dL] 5.1 gm/dL *LOW* (09/14/16 5:19 AM) Globulin [1.9-4.3 gm/dL] 3.1 gm/dL (09/14/16 5:19 AM) ALT [17-63 U/L] 76 U/L *HI* (09/14/16 5:19 AM) AST [15-41 U/L] 60 U/L *HI* (09/14/16 5:19 AM) Alk Phos [26-104 U/L] 85 U/L (09/14/16 5:19 AM) Bili Total [0.2-1.2 mg/dL] 1.0 mg/dL 2 (09/14/16 5:19 AM) Troponin [<0.06 ng/mL] 0.33 ng/mL 3 *HHI* (09/10/16 3:52 AM) Lipase Lvl [8-48 U/L] 18 U/L (09/09/16 9:01 AM) Lactic Acid Lvl [0.5-2.2 mEq/L] 1.9 mEq/L (09/09/16 12:06 PM) Blood Glucose, Capillary [70-100 mg/dL] 97 mg/dL (09/12/16 10:20 AM) Chol [0-200 mg/dL] 104 mg/dL (09/09/16 9:01 AM) Trig [0-150 mg/dL] 57 mg/dL (09/09/16 9:01 AM) HDL [>40 mg/dL] 52 mg/dL (09/09/16 9:01 AM) LDL [0-100 mg/dL] 41 mg/dL (09/09/16 9:01 AM) VLDL Cholesterol [0-30 mg/dL] 11 mg/dL (09/09/16 9:01 AM) Cardiac Risk [0.0-5.7] 2.0 (09/09/16 9:01 AM) TSH with Reflex Free T4 [0.35-5.50] 3.91 (09/09/16 8:37 PM) 1Result Comment: Multiply eGFR results by 1.21 for race.2Result Comment: Naproxen, specifically the metabolite O-desmethylnaproxen, may cause spurious elevation in Total Bilirubin levels.3Result Comment: Critical value called, and read-back verified. Called to EHSAN Og at 09/10/2016 04:36Urinalysis Most recent to oldest [Reference Range]: 1 UA Color Kori *ABN* (09/09/16 10:18 AM) UA Appear Clear (09/09/16 10:18 AM) UA pH [5.0-8.0] 5.0 (09/09/16 10:18 AM) UA Leuk Est [Negative] Negative (09/09/16 10:18 AM) UA Nitrite [Negative] Negative (09/09/16 10:18 AM) UA Protein [Negative] Negative (09/09/16 10:18 AM) UA Glucose [Negative] Negative (09/09/16 10:18 AM) UA Ketones [Negative] Negative (09/09/16 10:18 AM) UA Urobilinogen [<1.0] Negative (09/09/16 10:18 AM) UA Bili [Negative] Negative (09/09/16 10:18 AM) UA Blood [Negative] Negative (09/09/16 10:18 AM) UA Spec Grav [1.003-1.030] 1.015 (09/09/16 10:18 AM) Type Clean Catch (09/09/16 10:18 AM) Immunizations Given and Recorded Vaccine Date Status Refusal Reason influenza virus vaccine, inactivated 05/30/15 Given pneumococcal 13-valent conjugate vaccine 09/28/14 Given pneumococcal 23-polyvalent vaccine 02/20/05 Recorded tetanus/diphtheria/pertussis, acel(Tdap) 03/29/14 Recorded Procedures Procedure Date Related Diagnosis Body Site Cholecystectomy Laparoscopic1 09/12/16 Catheterization Left Heart with Coronary 09/11/16 Angiography2 Insertion of peripherally inserted central venous 09/10/16 catheter (PICC), without subcutaneous port or pump; age 5 years or older.. Circumcision3 Colonoscopy4 History of hernia repair Open fracture of upper arm Orchiectomy5 Repair of hip Tonsillectomy 1auto-populated from documented surgical [id number]-jfhosqgzd from documented surgical [id number] in January, NO polyps seen.5right Social History Social History Type Response Smoking Status Never smoker Assessment and Plan No data available for this section
--- OUTSIDE RECORDS SUMMARY | 2017-05-24 22:54 | External Medical Summary | Referral Summary ---
:1930 Author Organization [facility] Address [address] [place] [phone] Care Team Providers Name Role Phone Clinton Foley Primary Care Physician Encounter VC Date(s): 12/03/14 - 12/03/14 [facility] [address] [place] [phone] [place] Discharge Diagnosis: AK (actinic keratosis) Discharge Diagnosis: Neoplasm of uncertain behavior Discharge Diagnosis: Photoaged skin Discharge Diagnosis: Seborrheic keratoses Discharge Diagnosis: History of basal cell carcinoma Discharge Disposition: 01-Home or Self Care Attending Physician: Vishnu Londono MD Admitting Physician: Vishnu Londono MD Vital Signs No data available for [...] obstruction(Confirmed)7 Pulmonary embolism(Confirmed) Resolved Benign keratoses(Confirmed)8 Active NNM-mvnnncocbk-pdfzug(Confirmed)9 Active Spinal stenosis(Confirmed) Resolved 1Blood Clots in right prp9Dcj conversion document.3See conversion document.4See conversion document.5m21Qzhzqmwzaea prostate w/o urinary mrxwmexxvqt7vcg NextGen.8See conversion document.9See conversion document. Allergies, Adverse [...] patches, 3 Refill(s), Pharmacy: Pharmacy Start Date: 10/15/14 Status: Orderedmultivitamin 1 tabs, Oral, Daily, 0 Refill(s) Start Date: 04/21/14 Status: OrderedTylenol Extra Strength 325 mg, Take 2 tabs po bid prn, 0 Refill(s) Start Date: 04/21/14 Status: Orderedwarfarin 3 mg oral tablet 3 mg 1 tabs, Oral, Mon/Thurs, # 30 tabs, 2 Refill(s), Pharmacy: [facility], PLEASE CX RX FOR THE 4 MG WARFARIN, 1 tabs Oral Sat/ Start Date: 04/14/15 Status: Orderedwarfarin 4 mg oral tablet 1 tabs, Oral, Daily, # 90 tabs, 3 Refill(s), Pharmacy: Pharmacy, 1 tabs Oral Daily Start Date: 10/15/14 Status: Orderedwarfarin 4 mg oral tablet 4 mg 1 tabs, Oral, Mon//Fr, # 60 tabs, 0 Refill(s), Pharmacy: [facility], 1 tabs Oral Mon/We/Fr Start Date: 04/14/15 Status: Orderedwarfarin 5 mg oral tablet 1 tabs, Oral, Daily, # 90 tabs, 2 Refill(s), [facility], 1 tabs Oral Daily Start Date: 07/07/14 Status: Ordered Results No data available for this section Immunizations Vaccine Date Refusal Reason influenza virus vaccine, inactivated 05/30/15 pneumococcal 13-valent conjugate vaccine 09/28/14 pneumococcal 23-polyvalent vaccine 02/20/05 tetanus/diphtheria/pertussis, acel(Tdap) 03/29/14 Procedures Procedure Date Related Diagnosis Body Site Biopsy of skin, subcutaneous tissue and/or mucous 12/03/14 membrane (including simple closure), unless otherwise listed; single lesion Biopsy of skin, subcutaneous tissue and/or mucous 12/03/14 membrane (including simple closure), unless otherwise listed; single lesion Biopsy of skin, subcutaneous tissue and/or mucous 12/03/14 membrane (including simple closure), unless otherwise listed; single lesion Destruction (eg, laser surgery, electrosurgery, 12/03/14 cryosurgery, chemosurgery, surgical curettement), premalignant lesions (eg, actinic keratoses), 15 or more lesions Circumcision1 Colonoscopy2 Orchiectomy3 Tonsillectomy 8zikxpx2aspa in January, NO polyps seen.3right Social History Social History Type Response Smoking Status Never smoker Assessment and Plan Extracted from: Title: Office Visit Note Author: Vishnu Londono MD Date: 12/03/14 Assessment/Plan 1.AK (actinic keratosis) The site of concern the left cheek appears to be just a large AK. I froze it with liquid nitrogen along with more than 20 other AK's on his scalp and face and upper extr emities. He will follow-up in 2 months to make sure the site of the left cheek is resolved. We may also consider field treatment of his head in the future if needed. Detection advised and ongoing dermatology skin exams Discussed diagnosis and prognosis and treatment of [...] and consented to the procedure(s). I froze the AK's with LN2 for approximately 5-7 seconds [...] or skin changes of concern. Ordered: Destruction of 15 or more premalignant lesions 34932 Office Visit Level 3 New 12657 2.Neoplasm of uncertain behavior Shave biopsy on the mid-upper back of the right side to rule out basal cell carcinoma. I can excise this if positive Options/risks/benefits of the procedure were discussed and [...] given Ordered: Biopsy Of Skin, Single Lesion 44330 Office Visit Level 3 New 3.Photoaged skin Sun protection Ordered: Office Visit Level 3 New 4.Seborrheic keratoses Many of the sites of concern are seborrheic keratoses, benign, reassurance Ordered: Office Visit Level 3 New 5.History of basal cell carcinoma Is no evidence of recurrence in the left eyebrow Ordered: Office Visit Level 3 New Basal cell carcinoma of face
--- OUTSIDE RECORDS SUMMARY | 2017-05-24 22:54 | External Medical Summary | Referral Summary ---
:1930 Author Organization [facility] Address [address] [place] [phone] Care Team Providers Name Role Phone Clinton Foley Primary Care Physician Encounter VC Date(s): 12/03/14 - 12/03/14 [facility] [address] [place] [phone] [place] Discharge Diagnosis: AK (actinic keratosis) [...] obstruction(Confirmed)7 Pulmonary embolism(Confirmed) Resolved Benign keratoses(Confirmed)8 Active PEM-ikqsrzneze-uppmow(Confirmed)9 Active Spinal stenosis(Confirmed) Resolved 1Blood Clots in right kqc6Xml conversion document.3See conversion document.4See conversion document.7t44Fzakfrobyzz prostate w/o urinary hkjhncjtjai8fnn NextGen.8See conversion document.9See conversion document. Allergies, Adverse Reactions, Alerts Substance Reaction Severity Status acetaminophen-HYDROcodone Adverse Reaction Medium Active memantine Weakness Active Medications Aricept 10 mg oral tablet 1 tabs, Oral, Daily, # 90 tabs, 3 Refill(s), Pharmacy: [facility], 1 tabs Oral Daily Start Date: 10/15/14 Status: OrderedExelon 9.5 mg/24 hr transdermal film, extended release 1 patches, TransDermal, Daily, # 90 patches, 3 Refill(s), Pharmacy: [facility] Start Date: 10/15/14 Status: Orderedmultivitamin 1 tabs, Oral, Daily, 0 Refill(s) Start Date: 04/21/14 Status: OrderedTylenol Extra Strength 325 mg, Take 2 tabs po bid prn, 0 Refill(s) Start Date: 04/21/14 Status: Orderedwarfarin 3 mg oral tablet 3 mg 1 tabs, Oral, Mon/Thurs, # 30 tabs, 2 Refill(s), Pharmacy: [facility], PLEASE CX RX FOR THE 4 MG WARFARIN, 1 tabs Oral Sat/ Start Date: 04/14/15 Status: Orderedwarfarin 4 mg oral tablet 1 tabs, Oral, Daily, # 90 tabs, 3 Refill(s), Pharmacy: [facility], 1 tabs Oral Daily Start Date: 10/15/14 Status: Orderedwarfarin 4 mg oral tablet 4 mg 1 tabs, Oral, Mon//Fr, # 60 tabs, 0 Refill(s), Pharmacy: [facility], 1 tabs Oral Mon/We/Fr Start Date: 04/14/15 Status: Orderedwarfarin 5 mg oral tablet 1 tabs, Oral, Daily, # 90 tabs, 2 Refill(s), Pharmacy: [facility], 1 tabs Oral Daily Start Date: [...] or more lesions Circumcision1 Colonoscopy2 Orchiectomy3 Tonsillectomy 7tihgdx3upwd in January, NO polyps seen.3right Social History [...] Destruction of 15 or more premalignant lesions 92473 Office Visit Level 3 New 09441 2.Neoplasm of uncertain behavior Shave biopsy on [...] given Ordered: Biopsy Of Skin, Single Lesion 60798 Office Visit Level 3 New 3.Photoaged skin [...]
--- OUTSIDE RECORDS SUMMARY | 2017-05-24 22:54 | External Medical Summary | Referral Summary ---
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 Discharge Diagnosis: AK (actinic keratosis) Discharge Disposition: 01-Home or Self Care Attending Physician: Vishnu Londono MD Admitting Physician: Vishnu Londono MD Referring Physician: Clinton Foley MD Vital Signs No data available for this section Problem List Condition Effective Dates Status Health Status Informant Blood clot(Confirmed)1 Resolved Deep venous thrombosis right Active leg(Confirmed)2 Dementia(Confirmed) Resolved Diverticulosis(Confirmed) Resolved Fall from roof no injury(Confirmed)3 Active Fatigue-benign and Active multifactorial(Confirmed)4 Hearing loss(Confirmed) Resolved Hernia(Confirmed)5 Resolved Hypercholesterolemia(Confirmed) Resolved Hyperlipidemia(Confirmed) Resolved Hyperplasia of prostate(Confirmed)6 Resolved Hypertrophy of prostate w/o urinary Active obstruction(Confirmed)7 Hypothyroidism(Confirmed) Resolved Pulmonary embolism(Confirmed) Resolved Benign keratoses(Confirmed)8 Active WGG-zusfjnflpq-pvbgqv(Confirmed)9 Active Spinal stenosis(Confirmed) Resolved 1Blood Clots in right uhp2Zhg conversion document.3See conversion document.4See conversion document.7f44Ivtnxatxpbk prostate w/o urinary wsjcpampopf8enm NextGen.8See conversion document.9See conversion document. Allergies, Adverse Reactions, Alerts Substance Reaction Severity Status acetaminophen-HYDROcodone Adverse Reaction Medium Active memantine Weakness Active Medications Aricept 10 mg oral tablet 1 tabs, Oral, Daily, # 90 tabs, 3 Refill(s), Pharmacy: [facility], 1 tabs Oral Daily Start Date: 10/15/14 Status: OrderedExelon 9.5 mg/24 hr transdermal film, extended release 1 patches, TransDermal, Daily, # 90 patches, 3 Refill(s), Pharmacy: [facility] Start Date: 10/15/14 Status: Orderedmultivitamin 1 tabs, Oral, Daily, 0 Refill(s) Start Date: 04/21/14 Status: OrderedTylenol Extra Strength 325 mg, Take 2 tabs po bid prn, 0 Refill(s) Start Date: 04/21/14 Status: Orderedwarfarin 3 mg oral tablet 3 mg 1 tabs, Oral, Mon/, # 30 tabs, 2 Refill(s), Pharmacy: [facility], PLEASE CX RX FOR THE 4 MG WARFARIN, 1 tabs Oral Mon/ Start Date: 04/14/15 Status: Orderedwarfarin 4 mg oral tablet 1 tabs, Oral, Daily, # 90 tabs, 3 Refill(s), Pharmacy: [facility], 1 tabs Oral Daily Start Date: 10/15/14 Status: Orderedwarfarin 4 mg oral tablet 1 tabs, Oral, Daily, # 30 tabs, 0 Refill(s) Start Date: 04/26/14 Status: Orderedwarfarin 4 mg oral tablet 4 mg 1 tabs, Oral, Sat//Fr, # 60 tabs, 0 Refill(s), Pharmacy: [facility], 1 tabs Oral Mon/We/Fr Start Date: 04/14/15 Status: Orderedwarfarin 5 mg oral tablet 1 tabs, Oral, Daily, # 90 tabs, 2 Refill(s), [facility], 1 tabs Oral Daily Start Date: 07/07/14 Status: Ordered Results No data available for this section Immunizations Vaccine Date Refusal Reason pneumococcal 13-valent conjugate vaccine 09/28/14 pneumococcal 23-polyvalent vaccine 02/20/05 Procedures Procedure Date Related Diagnosis Body Site Destruction (eg, laser surgery, electrosurgery, 04/22/15 cryosurgery, chemosurgery, surgical curettement), premalignant lesions (eg, actinic keratoses); first lesion Destruction (eg, laser surgery, electrosurgery, 04/22/15 cryosurgery, chemosurgery, surgical curettement), premalignant lesions (eg, actinic keratoses); second through 14 lesions, each (List separately in addition to code for first lesion).. Circumcision1 Colonoscopy2 Orchiectomy3 Tonsillectomy 1hmqfpt6eyul in January, NO polyps seen.3right Social History [...] of concern. Ordered: Destruction premalignant lesion 1st Destruction premalignant lesion 2-14, Each 94763 2.Squamous cell carcinoma in situ There is no obvious persistent or recurrent squamous cell carcinoma or scram cell carcinoma in situ at the scar site on the left scalp. He is not interested in further therapy at the site and prefers to monitor. We discussed options and risks in detail Ordered: Office Visit Level 3 Est 39158
--- OUTSIDE RECORDS SUMMARY | 2017-05-24 22:54 | External Medical Summary | Referral Summary ---
:1930 Author Organization [facility] Address [address] [place] [phone] Care Team Providers Name Role Phone Clinton Foley Primary Care Physician Encounter VC Date(s): 12/03/14 - 12/03/14 [facility] [address] [place] [address] [place] Discharge Diagnosis: AK (actinic keratosis) [...] obstruction(Confirmed)7 Pulmonary embolism(Confirmed) Resolved Benign keratoses(Confirmed)8 Active ASU-ulyjwkdwxs-spsvup(Confirmed)9 Active Spinal stenosis(Confirmed) Resolved 1Blood Clots in right sgp8Xyw conversion document.3See conversion document.4See conversion document.3n44Skbhvjiipbb prostate w/o urinary bkbtexkyowh1pzq NextGen.8See conversion document.9See conversion document. Allergies, Adverse Reactions, Alerts Substance Reaction Severity Status acetaminophen-HYDROcodone Adverse Reaction Medium Active memantine Weakness Active Medications Aricept 10 mg oral tablet 1 tabs, Oral, Daily, # 90 tabs, 3 Refill(s), Pharmacy: [facility], 1 tabs Oral Daily Start Date: 10/15/14 Status: OrderedExelon 9.5 mg/24 hr transdermal film, extended release 1 patches, TransDermal, Daily, # 90 patches, 3 Refill(s), Pharmacy: [facility] Start Date: 10/15/14 Status: Orderedmultivitamin 1 tabs, Oral, Daily, 0 Refill(s) Start Date: 04/21/14 Status: OrderedTylenol Extra Strength 325 mg, Take 2 tabs po bid prn, 0 Refill(s) Start Date: 04/21/14 Status: Orderedwarfarin 3 mg oral tablet 3 mg 1 tabs, Oral, Mon/Thurs, # 30 tabs, 2 Refill(s), Pharmacy: [facility], PLEASE CX RX FOR THE 4 MG WARFARIN, 1 tabs Oral Sat/ Start Date: 04/14/15 Status: Orderedwarfarin 4 mg oral tablet 1 tabs, Oral, Daily, # 90 tabs, 3 Refill(s), Pharmacy: [facility], 1 tabs Oral Daily Start Date: 10/15/14 Status: Orderedwarfarin 4 mg oral tablet 4 mg 1 tabs, Oral, Mon//Fr, # 60 tabs, 0 Refill(s), Pharmacy: [facility], 1 tabs Oral Mon/We/Fr Start Date: 04/14/15 Status: Orderedwarfarin 5 mg oral tablet 1 tabs, Oral, Daily, # 90 tabs, 2 Refill(s), [facility], 1 tabs Oral Daily Start Date: [...] or more lesions Circumcision1 Colonoscopy2 Orchiectomy3 Tonsillectomy 8cperer9eidx in January, NO polyps seen.3right Social History [...] Destruction of 15 or more premalignant lesions 44171 Office Visit Level 3 New 66589 2.Neoplasm of uncertain behavior Shave biopsy on [...] given Ordered: Biopsy Of Skin, Single Lesion 51460 Office Visit Level 3 New 3.Photoaged skin [...]
--- OUTSIDE RECORDS SUMMARY | 2017-05-24 22:54 | External Medical Summary | Referral Summary ---
:1930 Author Organization [facility] Address [address] [place] [address] Care Team Providers Name Role Phone Clinton Foley Primary Care Physician Encounter VC Date(s): 09/09/16 - 09/24/16 [facility] [address] [place] [address] [place] Discharge Disposition: 01-Home or [...] At Risk for Infection in Nutrition Planof Jgvh0Fyqio Clots in right fvo4Prlgyyd added automatically by system based on initiation of Cardiac Output/Ineffective Cardiac Perfusion Plan of Nmhh6Wjp conversion document.5See conversion document.8a36Lvgxbyckcyj prostate w/o urinary dejkacudduv3nkn NextGen.9See conversion document. Allergies, Adverse Reactions, Alerts Substance Reaction Severity Status acetaminophen-HYDROcodone Adverse Reaction Medium Active memantine Weakness Active Medications aspirin 81 mg oral tablet, chewable 81 mg 1 tabs, Oral, Daily, 0 Refill(s) Start Date: 09/14/16 Status: OrderedCardizem CD 180 mg/24 hours oral capsule, extended release 180 mg 1 caps, Oral, Daily, # 30 caps, 0 Refill(s), Pharmacy: [facility] , 1 caps Oral Daily Start Date: 09/14/16 Status: OrderedCoumadin 5 mg oral tablet 5 mg 1 tabs, Oral, Daily, # 30 tabs, 0 Refill(s), Pharmacy: [facility], 1 tabs Oral Daily Start Date: [...] Daily, # 90 patches, 2 Refill(s), Pharmacy: [facility] Start Date: 09/17/16 Status: Ordered [...] of hip Tonsillectomy 1auto-populated from documented surgical pnbf4gkah-vbukitmto from documented surgical plpx0qkazaq2suqq in January, NO polyps seen.5right Social History Social History Type Response Smoking Status Never smoker Assessment and Plan No data available for this section
--- OUTSIDE RECORDS SUMMARY | 2017-05-24 22:54 | External Medical Summary | Referral Summary ---
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 Allergies, Adverse [...] [facility], 1 tabs Oral 5 [...] Daily, # 90 tabs, 2 Refill(s), Pharmacy: [facility], 1 tabs Oral Daily Start Date: 07/07/14 Status: Ordered Results No data available for this section Immunizations Vaccine Date Refusal Reason influenza virus vaccine, inactivated 05/30/15 pneumococcal 13-valent conjugate vaccine 09/28/14 pneumococcal 23-polyvalent vaccine 02/20/05 tetanus/diphtheria/pertussis, acel(Tdap) 03/29/14 Procedures Procedure Date Related Diagnosis Body Site Destruction (eg, laser surgery, electrosurgery, 03/15/15 cryosurgery, chemosurgery, surgical curettement), premalignant lesions (eg, actinic keratoses); first lesion Excision, malignant lesion including margins, 03/15/15 scalp, neck, hands, feet, genitalia; excised diameter 2.1 to 3.0 cm Excision, malignant lesion including margins, 03/15/15 scalp, neck, hands, feet, genitalia; excised diameter 2.1 to 3.0 cm Excision, malignant lesion including margins, 03/15/15 scalp, neck, hands, feet, genitalia; excised diameter 2.1 to 3.0 cm Repair, intermediate, wounds of scalp, axillae, 03/15/15 trunk and/or extremities (excluding hands and feet); 2.6 cm to 7.5 cm.. Repair, intermediate, wounds of scalp, axillae, 03/15/15 trunk and/or extremities (excluding hands and feet); 2.6 cm to 7.5 cm.. Repair, intermediate, wounds of scalp, axillae, 03/15/15 trunk and/or extremities (excluding hands and feet); 2.6 cm to 7.5 cm.. Circumcision1 Colonoscopy2 Orchiectomy3 Tonsillectomy [id number] in January, NO polyps seen.3right Social History Social History Type Response Smoking Status Never smoker Assessment and Plan Extracted from: Title: Office Visit Note Author: Vishnu Londono MD Date: 03/15/15 Assessment/Plan 1.Squamous cell carcinoma of scalp I excised the 1.5 x 1 cm lesions with 0.5 cm margins for an excised diameter of 2.5 x 2 cm. I did an intermediate layered closure with buried 4-0 PDS and top 4 -0 Prolene with a final wound repair length of 4.2cm. He'll follow-up in 10- 12 days for suture removal or sooner for any problems. Follow-up in a few months for his next skin exam given his extensiv e actinic damage. He could consider field treatment for his head in the future Ordered: Exc Mal Les Scalp Neck Hand Feet 2.1-3.0cm 66430 Intermediate Repair Wounds; Scalp Trunk Extremities 2.6-7.5cm [id number] 2.AK (actinic keratosis) I froze the AK on the left cheek with liquid nitrogen for 7 seconds today. Discussed diagnosis and prognosis and treatment of [...] and consented to the procedure(s). I froze one AK with LN2 for approximately 5-7 seconds. Wound care instructions given. Discussed/educated patient on sun protection measures, importance of sun protection, and need for self-skin examination. Recommended regular (at least yearly, or sooner if directed in other follow-up instructions) dermatology fol low-up examinations due to high-risk of more AK's and risk of skin cancers, and recommend follow-up dermatology examination for any changing or concerning moles, growths, or skin changes of concern. Ordered: Destruction premalignant lesion
[2017-05-24 23:33] VITALS: BMI 28.8
[2017-05-24] MEDS: LR 1,000 ML IV SCH (23:47)
[2017-05-25] MEDS ORDERED: PHYTONADIONE 5 MG/2.5 ML ORAL LIQUID PO ONE ×2 (00:09→09:38)
--- NOTE | 2017-05-25 00:14 | History & Physical Report ---
<Paulie Perez P - Last Filed: 05/25/17 00:10> History of Present Illness Date: 05/25/17 Chief complaint: hip pain after fall HPI: Please note that the patient was seen via telemedicine with nursing assistance atarting on 05/24/2017 Mr. Duran is a pleasant 87yo man with h/o mild dementia, PEs first 30 years ago on warfarin since, paroxysmal afib, and previous fx L hip now after 05/24 1830 nonsyncopal fall with a R femoral neck fx by xray at OSH. No CP, sob, nausea, fevers or chills. He was on azithromcycin for bronchitis but with no significant cough now. 6/10 pain recognized in the R hip. Only recent med change was diltiazem to metoprolol which due to BP was hillary changed to metoprolol xl. of 64years is at the bedside assisting with history as the patient is hard of hearing. [facility] Patient Stated Medical History Cataracts Yes: one eye Hypotension Yes afib and previous PEs Surgical History: Dr. Hellen Morales hip surgery for fracture 2 years ago Family History Updates: mother of colon cancer, father of CAD - Social History Smoking status: Never smoker Substance use type: does not use Alcohol intake frequency: does not drink Current occupational status: retired Medications Home Medications Medication Instructions Recorded Confirmed Type Donepezil HCl 10 mg PO DAILY #0 10/08/11 History Rivastigmine (Exelon 9.5 Mg Patch) 1 patch TD DAILY #0 10/08/11 05/24/17 History Warfarin Sodium 5 mg PO DAILY #0 10/08/11 05/24/17 History Azithromycin *Ed Prepack* [Z-Rubin 250 mg PO DAILY 05/24/17 05/25/17 History *Ed Prepack*] Metoprolol ER-Hctz 25-12.5 mg 05/25/17 History Multivitamin 05/25/17 History Psyllium [Metamucil] 1 packet PO DAILY 05/25/17 05/25/17 History Allergies Allergy/AdvReac Type Severity Reaction Status Date / Time NKDA Allergy Uncoded 10/08/11 11:12 Exam Vital Signs: Temperature 97.5 F 05/24/17 22:59 Pulse Rate 88 05/24/17 23:04 Respiratory Rate 16 05/24/17 22:59 Blood Pressure 175/85 H 05/24/17 23:04 Pulse Oximetry 94 05/24/17 22:59 Height/Weight/BMI: Height 1.78 m Weight 91.2 kg Body Mass Index 28.8 - Constitutional Present: no acute distress, mild distress Comments: hurts when moves - Routine HEENT Exam Head: Present: normocephalic Eye: Present: EOMI - Routine Respiratory Exam Present: CTA bilaterally. Absent: accessory muscle use - Routine Cardiovascular Exam Present: RRR, S1, S2 - Routine Abdominal Exam Present: soft, normoactive bowel sounds - Routine Extremities Exam Absent: cyanosis, clubbing - Routine Skin Exam Comments: middle finger with avulsion injury, no breakdown or lesions over R hip - Routine Neurological Exam Present: alert no lateralizing signs Results - Labs CBC & Chem 7: 05/24/17 23:37 05/24/17 23:37 Assessment and Plan (1) Hip fracture, right Current visit: Yes Status: Acute (2) Paroxysmal atrial fibrillation Current visit: Yes Status: Acute Assessment and Plan: 1. Acute R femur fx at femoral neck POA--full admission with NPO, IVF, Dr. Macedo to see. Revised cardiac risk index of only 1 and so can clear for surgery if EKG fine. Order for AM and see below. Start Vitamin D. 2. PEs/Afib hx--INR likely to delay surgery. Vitamin K 5mg PO once with 0800 recheck. 3. Paroxysmal afib--continue bblocker. 4. Leukocytosis--likely stress induced but check UA and monitor temp. 5. Dementia-hold meds for now. DVT Prophylaxis: other (hold warfarin with therapetic but pending surgery) Hospital Course Summary Disclaimer: The visit summary below is not to be considered part of the above Progress Note. <Abhijeet Ortega IV - Last Filed: 05/25/17 10:18> History of Present Illness Date: 05/25/17 [facility] Patient Stated Medical History Cataracts Yes: one eye Hypotension Yes Exam Vital Signs: Temperature 98.8 F 05/25/17 04:58 Pulse Rate 85 05/25/17 04:58 Respiratory Rate 16 05/25/17 04:58 Blood Pressure 121/67 05/25/17 04:58 Pulse Oximetry 90 05/25/17 04:58 Height/Weight/BMI: Height 5 ft 10 in Weight 90.2 kg Body Mass Index 28.8 Results - Labs CBC & Chem 7: 05/24/17 23:37 05/24/17 23:37 Assessment and Plan (1) Hip fracture, right Current visit: Yes Status: Acute (2) Paroxysmal atrial fibrillation Current visit: Yes Status: Acute Assessment and Plan: I have independently interviewed and examined the patient. Chart reviewed. Above note reviewed and concur. CC: R femur fx, s/p fall HPI: 87-year-old male fell in his kitchen last night. He has a h/o dementia. He is unable to explain how he fell. Xray showed right femoral neck fx. Patient is on chronic anticoagulation for h/o PEs and paroxysmal atrial fibrillation. He got Vit K 5mg last night and INR is 2.75 today. His RLE pain is controlled. He denies any other pain. PMHx, FamHx, SocHx reviewed. ROS: in addition to above, patient is hard of hearing and has hearing aides in. He has problems with constipation but take Metamucil daily with good result. Remainder of 10-point ROS is negative. Gen: NAD HEENT:nc/at, anicteric, perrl, eomi neck: supple CV: rrr, no murmur Lungs: CTAB Abd: s/nt/nd +bs ext: no edema neuro: cn II-XII intact. no focal deficit lab reviewed Assessment: Right femoral neck fx chronic anticoagulation paroxysmal afib h/o PEs dementia leukocytosis chronic bronchitis HTN Plan: Admit as inpatient. Dr. Macedo consulted. Repeat Vitamin K and recheck INR. BP better with pain controlled. Continue metoprolol. Patient on 1-2L/NC. Consult RT. Recheck wbc. Plan for surgery tomorrow if INR down. Monitor for encephalopathy. Try to keep patient oriented. Hospital Course Summary Disclaimer: The visit summary below is not to be considered part of the above Progress Note. Assessment: Right femoral neck fx chronic anticoagulation paroxysmal afib h/o PEs dementia leukocytosis chronic bronchitis HTN Plan: Admit as inpatient. Dr. Macedo consulted. Repeat Vitamin K and recheck INR. BP better with pain controlled. Continue metoprolol. Patient on 1-2L/NC. Consult RT. Recheck wbc. Plan for surgery tomorrow if INR down. Monitor for encephalopathy. Try to keep patient oriented.
[2017-05-25] MEDS ORDERED: ERGOCALCIFEROL 50,000 UNIT CAPSULE PO SCH (00:15)
[2017-05-25] MEDS: MORPHINE SULFATE 4mg INJECTION IVP PRN ×5 (00:40→20:40)
--- NOTE | 2017-05-25 07:30 | Orthopedic Consult Note ---
Orthopedic Consultation HPI - Consultation Info Consult Date: 05/25/17 Attending Physician: Paulie Perez MD Consult Reason: fracture - History of Present Illness Mr. Duran is a kind he 7-year-old gentleman who fell yesterday suffering a displaced right total neck fracture. He is known to me from previous left hip fracture repair approximately 2 years ago. Today he complains only of right hip pain to me. He is on Coumadin currently INR is above 2. Review of Systems - Constitutional Constitutional: Absent: chills, fever(s), night sweats - Cardiovascular Cardiovascular: Absent: chest pain, palpitations - Respiratory Respiratory: Absent: cough, dyspnea - Gastrointestinal Gastrointestinal: Absent: abdominal pain, nausea, vomiting - Musculoskeletal Musculoskeletal: Present: as per HPI - Integumentary/Breasts Integumentary: Absent: lesions, rash - Neurological Neurological: Absent: numbness, tingling PFSH Patient Stated Medical History Cataracts Yes: one eye Hypotension Yes Surgical History: Dr. Hellen Morales hip surgery for fracture 2 years ago - Social History Smoking status: Never smoker Medications Home Medications Medication Instructions Recorded Confirmed Type Donepezil HCl 10 mg PO DAILY #0 10/08/11 History Rivastigmine (Exelon 9.5 Mg Patch) 1 patch TD DAILY #0 10/08/11 05/24/17 History Warfarin Sodium 5 mg PO DAILY #0 10/08/11 05/24/17 History Azithromycin *Ed Prepack* [Z-Rubin 250 mg PO DAILY 05/24/17 05/25/17 History *Ed Prepack*] Metoprolol ER-Hctz 25-12.5 mg 05/25/17 History Multivitamin 05/25/17 History Psyllium [Metamucil] 1 packet PO DAILY 05/25/17 05/25/17 History Allergies Allergy/AdvReac Type Severity Reaction Status Date / Time NKDA Allergy Uncoded 10/08/11 11:12 Orthopedic Exam Vital signs: Temperature 98.8 F 05/25/17 04:58 Pulse Rate 85 05/25/17 04:58 Respiratory Rate 16 05/25/17 04:58 Blood Pressure 121/67 05/25/17 04:58 Pulse Oximetry 90 05/25/17 04:58 - Constitutional General Appearance: Present: no acute distress, well developed, well nourished - Respiratory Exam Present: non-labored - Cardiovascular Exam Present: pedal pulses intact - Extremities Exam Comments: Skin intact over right lower extremity. Right leg is shortened and externally rotated. - Integumentary Exam Present: pink, warm, dry - Neurological Exam Present: intact to light touch - Psychiatric Exam Present: alert, normal affect - Labs Result Diagrams: 05/24/17 23:37 05/24/17 23:37 Abnormal lab results 05/24/17 05/24/17 05/24/17 Range/Units 23:37 23:37 23:37 WBC 12.5 H (4.5-11.0) T/MM3 Neut % (Auto) 81.2 H (33-66) % Lymph % (Auto) 12.0 L (23-45) % Neut # (Auto) 10.2 H (1.8-7.7) T/MM3 Abs Immat Gran (auto) 0.04 H (0.00-0.03) T/MM3 INR 2.72 H (0.99-1.21) BUN 24.0 H (9-20) MG/DL Glucose 139 H (75-110) MG/DL Urine Occult Blood (NEGATIVE) 05/25/17 Range/Units 00:21 WBC (4.5-11.0) T/MM3 Neut % (Auto) (33-66) % Lymph % (Auto) (23-45) % Neut # (Auto) (1.8-7.7) T/MM3 Abs Immat Gran (auto) (0.00-0.03) T/MM3 INR (0.99-1.21) BUN (9-20) MG/DL Glucose (75-110) MG/DL Urine Occult Blood 1+ A (NEGATIVE) H & H 05/24/17 Range/Units 23:37 Hgb 15.5 (13.5-17.5) GM/DL Hct 45.1 (41-53) % Coagulation 05/24/17 Range/Units 23:37 INR 2.72 H (0.99-1.21) - Diagnostic results Hip x-ray: image reviewed Impression and Recommendation (1) Displaced fracture of right femoral neck Current visit: Yes Status: Acute I reviewed the diagnosis with Mr. Duran. I recommended a hemiarthroplasty. I like to perform this once INR is below 1.5. I will discussed with the medicine team about timing of surgery. I reviewed Mr. Duran the risks and benefits of surgery. Hopefully he'll be cleared medically for surgery tomorrow. I'll make him nothing by mouth midnight in anticipation of surgery tomorrow. Hospital Course Summary Disclaimer: The visit summary below is not to be considered part of the above Progress Note.
[2017-05-25] MEDS: LR 1,000 ML IV SCH ×2 (10:12→21:47)
[2017-05-25] MEDS: ALBUTEROL 2.5mg/3ml (0.083%) NEB AEROSOL SCH ×3 (10:50→21:49)
[2017-05-25] MEDS: DONEPEZIL 10 MG TABLET PO SCH (12:26)
[2017-05-25] MEDS: RIVASTIGMINE 9.5 MG/24 HR PATCH TD SCH (12:26)
[2017-05-25] MEDS: AZITHROMYCIN 250 MG TABLET PO SCH ×2 (12:27→13:13)
[2017-05-25] MEDS ORDERED: PHYTONADIONE 5 MG/2.5 ML ORAL LIQUID PO PRN (18:23)
[2017-05-25] MEDS: HYDROCODONE/APAP 5mg/325mg TABLET PO PRN ×2 (18:41→23:20)
[2017-05-26] MEDS: LR 1,000 ML IV SCH ×4 (04:55→13:54)
[2017-05-26] MEDS: MORPHINE SULFATE 4mg INJECTION IVP PRN (06:37)
[2017-05-26] MEDS: ALBUTEROL 2.5mg/3ml (0.083%) NEB AEROSOL SCH ×5 (07:05→21:00)
[2017-05-26] MEDS ORDERED: EPINEPHrine PF 0.25 MG, BUPIVACAINE 0.25% PF 30 ML, MORPHINE SULFATE 15 MG, KETOROLAC I... OPSITE ONE (08:19)
[2017-05-26] MEDS ORDERED: TRANEXAMIC ACID 1,000mg/10ml INJECTION TOP ONE (08:20)
--- NOTE | 2017-05-26 08:22 | Orthopedic Progress Note ---
Date: Subjective/Severity of Illness: No new complaints this morning. He is ready for surgery. Orthopedic Objective Vital signs: Temperature 98.7 F 05/26/17 07:36 Pulse Rate 92 05/26/17 07:36 Respiratory Rate 16 05/26/17 07:36 Blood Pressure 138/77 05/26/17 07:36 Pulse Oximetry 93 05/26/17 07:36 Height and Weight: Height 5 ft 10 in Weight 90.2 kg Body Mass Index 28.8 - Constitutional General Appearance: Present: no acute distress, well developed, well nourished - Respiratory Exam Present: non-labored - Cardiovascular Exam Capillary Refill: < 2-3 Seconds - Extremities Exam Absent: cyanosis, clubbing - Integumentary Exam Present: pink, warm, dry - Neurological Exam Present: intact to light touch - Labs Result Diagrams: 05/24/17 23:37 05/24/17 23:37 Abnormal lab results 05/25/17 05/25/17 05/26/17 Range/Units 16:02 21:47 06:06 INR 1.85 H 1.57 H 1.37 H (0.99-1.21) H & H 05/24/17 Range/Units 23:37 Hgb 15.5 (13.5-17.5) GM/DL Hct 45.1 (41-53) % Coagulation 05/24/17 05/25/17 05/25/17 Range/Units 23:37 07:38 16:02 INR 2.72 H 2.75 H 1.85 H (0.99-1.21) 05/25/17 05/26/17 Range/Units 21:47 06:06 INR 1.57 H 1.37 H (0.99-1.21) Orthopedic Assessment and Plan (1) Displaced fracture of right femoral neck Status: Acute Assessment and Plan: INR is below 1.5. We will proceed with right hip hemiarthroplasty this morning. His family is on the way I will speak to them before surgery. Hospital Course Summary Disclaimer: The visit summary below is not to be considered part of the above Progress Note.
--- NOTE | 2017-05-26 08:35 | Anesthesia Preoperative Report ---
Anesthesia Preoperative Record - Date and Time Date: 05/26/17 Preoperative Diagnosis: Right femoral neck fracture Proposed Procedure: orif ritht hip NPO Since Date: 05/25/17 NPO Since Time: 23:00 Allergies/Adverse Reactions: Allergies Allergy/AdvReac Type Severity Reaction Status Date / Time NKDA Allergy Uncoded 10/08/11 11:12 - Vital Signs Vital Signs: Temperature 98.7 F 05/26/17 07:36 Pulse Rate 92 05/26/17 07:36 Respiratory Rate 16 05/26/17 07:36 Blood Pressure 138/77 05/26/17 07:36 Pulse Oximetry 93 05/26/17 07:36 Height and Weight: Height 1.78 m Weight 90.2 kg Body Mass Index 28.8 - Medications Inpatient Medications: Current Medications Hydrocodone Bitart/Acetaminophen ([place] 5/325) 1 tab PO Q4H PRN PRN Reason: Pain Last Admin: 05/25/17 23:20 Dose: 1 tab Albuterol Sulfate (Proventil Neb (0.083%)) 2.5 mg AEROSOL RTQID [facility] Last Admin: 05/26/17 07:05 Dose: 2.5 mg Donepezil HCl (Aricept) 10 mg PO DAILY [facility] Last Admin: 05/25/17 12:26 Dose: 10 mg Ergocalciferol (Vitamin D-2) 50,000 unit PO Q7D [facility] Last Admin: 05/25/17 00:32 Dose: 50,000 unit Lactated Ringer's (Lactated Ringers) 1,000 mls @ 100 mls/hr IV .Q10H [facility] Last Admin: 05/26/17 07:56 Dose: 100 mls/hr Epinephrine HCl 0.25 mg/Bupivacaine HCl 30 ml/Morphine Sulfate 15 mg/Ketorolac Tromethamine 60 mg/Sodium Chloride 65.25 mls @ 1 mls/hr OPSITE INTRAOP ONE PRN Reason: Protocol Stop: 05/29/17 01:33 Cefazolin Sodium 2 g/ Sodium (Chloride) 100 mls @ 200 mls/hr IV PREOP [facility] Lactated Ringer's (Lactated Ringers) 1,000 mls @ 50 mls/hr IV .Q20H [facility] Metoprolol Succinate (Toprol Xl) 25 mg PO DAILY [facility] Last Admin: 05/25/17 08:59 Dose: 25 mg Morphine Sulfate (Morphine Sulfate Inj) 2 - 4 mg IVP Q2H PRN PRN Reason: Pain Last Admin: 05/26/17 06:37 Dose: 2 mg Ondansetron HCl (Zofran) 4 mg IVP Q6H PRN PRN Reason: Nausea &/or vomiting Phytonadione (Vitamin K Oral Liq) 5 mg PO O PRN PRN Reason: give if INR >1.5 05/25 Stop: 05/26/17 12:00 Last Admin: 05/25/17 23:20 Dose: 5 mg Rivastigmine (Exelon Patch) 9.5 mg TD DAILY [facility] Last Admin: 05/25/17 12:26 Dose: 9.5 mg Home Medications: Home Medications Medication Instructions Recorded Confirmed Type Donepezil HCl 10 mg PO DAILY #0 10/08/11 05/25/17 History Rivastigmine (Exelon 9.5 Mg Patch) 1 patch TD DAILY #0 10/08/11 05/25/17 History Warfarin Sodium 5 mg PO DAILY #0 10/08/11 05/24/17 History Azithromycin *Ed Prepack* [Z-Rubin 250 mg PO DAILY 05/24/17 05/25/17 History *Ed Prepack*] Metoprolol Succinate 25 mg PO DAILY 05/25/17 05/25/17 History Multivitamin 05/25/17 History Psyllium [Metamucil] 1 packet PO DAILY 05/25/17 05/25/17 History - Medical History Respiratory: Reports: Pulmonary Embolism (over 30 years ago, warfarin therapy ) Cardiovascular: Reports: Arrhythmia (history of afib ), Hypertension Neuro/Musculoskeletal: Reports: Other (dementia ) - Surgical History HEENT Surgeries: Reports: Tonsillectomy Cardiac Surgeries/Treatments: Reports: Cardiac Catheterization GI Surgery/Treatments: Reports: Cholecystectomy, Hernia Repair (aurea groin), Colonoscopy Musculoskeletal Surgery/Tx: Reports: Joint Surgery (rt shoulder pins), Other ( femur fx pins) Anesthesia Reactions: None Hx Family Anesthesia Reaction: No - Social History Smoking Status: Never smoker - Pertinent Findings Laboratory: CBC and BMP 05/24/17 23:37 05/24/17 23:37 - Physical Exam Respiratory Exam: Present: lungs clear, bilateral breath sounds equal Cardiovascular Exam: Present: irregularly irregular - Airway Assessment Mallampati Score: III TMD: 2 Fingerbreadths Neck Extension: fair Overall Assessment: may be difficult intubation - ASA ASA Score: 3 - Plan Anesthesia: General Inhalation Gases - Discussion Discussion: Discussed risks/options/alternatives of anesthesia and questions answered. Patient consents. Nursing pain assessment noted. Attestation Statement: Prior to the delivery of any anesthetic medication, I examined the patient, developed the plan, obtained the patient's consent and discussed the risk and benefits of the procedure with the patient/guardian.
[2017-05-26] MEDS ORDERED: LR 1,000 ML IV SCH (08:45)
[2017-05-26] MEDS ORDERED: MIDAZOLAM 2mg/2ml INJECTION ONE (08:48)
[2017-05-26] MEDS ORDERED: PROPOFOL 20 ML ONE (08:48)
[2017-05-26] MEDS ORDERED: KETAMINE 500 MG/10 ML INJECTION ONE (08:48)
[2017-05-26] MEDS ORDERED: FentaNYL 100 MCG/2 ML INJECTION ONE ×2 (08:48→09:47)
[2017-05-26] MEDS ORDERED: ROCURONIUM 50 MG/5 ML INJECTION IVP ONE (08:48)
[2017-05-26] MEDS ORDERED: CEFAZOLIN 2 G in NS 100 ML IV SCH (09:00)
[2017-05-26] MEDS ORDERED: ONDANSETRON 4 MG/2 ML INJECTION ONE (09:22)
[2017-05-26] MEDS ORDERED: METOCLOPRAMIDE 10mg/2ml INJECTION ONE (09:22)
[2017-05-26] MEDS ORDERED: DEXAMETHASONE 4 MG/ML INJECTION ONE (09:22)
[2017-05-26] MEDS ORDERED: PHENYLEPHRINE INJ 10 MG/ML VIAL IV ONE (09:23)
[2017-05-26] MEDS ORDERED: SALINE FLUSH 10ml SYRINGE ONE (09:24)
[2017-05-26] MEDS ORDERED: VANCOMYCIN 1,000 MG INJECTION ONE (10:04)
[2017-05-26] MEDS ORDERED: ESMOLOL 100 MG/10 ML INJECTION ONE (10:18)
[2017-05-26] MEDS ORDERED: VANCOMYCIN 1,000 MG INJECTION IAR ONE (10:37)
[2017-05-26] MEDS ORDERED: HYDROMORPHONE 2 MG/ML INJECTION IVP PRN (10:57)
--- NOTE | 2017-05-26 11:25 | Post Procedure Note ---
Date of Procedure: 05/26/17 Orthopedic Surgeon: Hellen Anesthesia: General Inhalation Gases Procedure: Procedures Operation Date: 05/26/17 09:00 Actual Procedures p Hemiarthroplasty Hip(Right) - Sameer Macedo MD Condition: Stable Disposition: PACU
--- NOTE | 2017-05-26 11:26 | Anesthesia Postoperative Note ---
- Date and Time Date: 05/26/17 Time: 11:25 - Status Patient Participated in Evaluation: Patient Participated in Person Vital Signs: Temperature 98.7 F 05/26/17 07:36 Pulse Rate 92 05/26/17 07:36 Respiratory Rate 16 05/26/17 07:36 Blood Pressure 138/77 05/26/17 07:36 Pulse Oximetry 93 05/26/17 07:36 Respiratory Function: Airway Patent Cardiovascular Function: Regular Pulse EKG: Sinus Rhythm Mental Status: Lethargic (baseline preop) Pain Intensity: 0 Hydration: IV Infusing Complications During Recover: None Apparent - Follow-Up Instructions Instructions: Per Surgeon
[2017-05-26] MEDS: RIVASTIGMINE 9.5 MG/24 HR PATCH TD SCH (13:49)
[2017-05-26] MEDS: AZITHROMYCIN 250 MG TABLET PO SCH (13:51)
[2017-05-26] MEDS: DONEPEZIL 10 MG TABLET PO SCH (13:51)
--- NOTE | 2017-05-26 14:47 | Progress Note ---
- Date 05/26/17 Subjective: Patient sleeping post-op. Awakens and answers questions. Says hip pain is controlled. Denies nausea. Family at bedside. Objective Vital signs: Temperature 96.7 F L 05/26/17 12:28 Pulse Rate 69 05/26/17 14:13 Respiratory Rate 16 05/26/17 14:13 Blood Pressure 108/59 05/26/17 14:13 Pulse Oximetry 93 05/26/17 14:13 Rhythm: Normal Sinus Rhythm Height/Weight/BMI: Height 5 ft 10 in Weight 90.7 kg Body Mass Index 28.8 - Constitutional Present: well nourished, well developed - Routine HEENT Exam Eye: Present: EOMI ENT: Present: mucous membranes moist, dentition normal - Routine Respiratory Exam Present: diminished air movement - Routine Cardiovascular Exam Present: RRR. Absent: murmur - Routine Abdominal Exam Present: soft, normoactive bowel sounds, non distended. Absent: tenderness - Routine Extremities Exam Present: edema Comments: trace - Routine Psychiatric Exam Present: normal affect Results - Labs CBC & Chem 7: 05/24/17 23:37 05/24/17 23:37 Assessment and Plan (1) Hip fracture, right Current visit: Yes Status: Acute (2) Paroxysmal atrial fibrillation Current visit: Yes Status: Acute Assessment and Plan: Assessment: Right femoral neck fx chronic anticoagulation paroxysmal afib h/o PEs dementia leukocytosis chronic bronchitis HTN Plan: Resume warfarin now. Will see tomorrow whether lovenox 1mg/kg is OK with Dr. Macedo. Patient moved closer to nursing station to monitor for increased confusion. Continue O2, breathing tx as needed. Continue home meds for HTN, dementia. Hospital Course Summary Disclaimer: The visit summary below is not to be considered part of the above Progress Note. Hospital Course: 05/26/17 14:53 Assessment: Right femoral neck fx chronic anticoagulation paroxysmal afib h/o PEs dementia leukocytosis chronic bronchitis HTN Plan: Resume warfarin now. Will see tomorrow whether lovenox 1mg/kg is OK with Dr. Macedo. Patient moved closer to nursing station to monitor for increased confusion. Continue O2, breathing tx as needed. Continue home meds for HTN, dementia.
[2017-05-26] MEDS: CEFAZOLIN 1 G in NS 100 ML IV SCH (17:05)
[2017-05-27] MEDS: CEFAZOLIN 1 G in NS 100 ML IV SCH (00:55)
[2017-05-27] MEDS: LR 1,000 ML IV SCH ×3 (00:56→22:05)
[2017-05-27] MEDS: ALBUTEROL 2.5mg/3ml (0.083%) NEB AEROSOL SCH ×2 (06:59→11:35)
--- NOTE | 2017-05-27 08:55 | XRay Report ---
Indication: right hemiarthroplasty PROCEDURE: XR pelvis w/ 1 view RT hip: Encounter: Initial Comparison: None. Findings: The patient has had an intramedullary maritza and femoral nail placement of the proximal left femur with a right hip arthroplasty. The alignment is anatomic. There is no definite displaced fracture or bony destructive process. Impression: Anatomic alignment status post left proximal femoral nailing. .
[2017-05-27] MEDS ORDERED: ENOXAPARIN 40 MG/0.4 ML INJECTION SQ SCH (09:00)
[2017-05-27] MEDS: DONEPEZIL 10 MG TABLET PO SCH (10:00)
[2017-05-27] MEDS: RIVASTIGMINE 9.5 MG/24 HR PATCH TD SCH (10:01)
--- NOTE | 2017-05-27 10:19 | Progress Note ---
- Date 05/27/17 Patient up to chair. Says his hip is a little sore. Nurse says patient needs 2- person assist. Patient denies nausea. Says he didn't eat yesterday, but he was looking at his menu. Nurse says patient did well overnight. Objective Vital signs: Temperature 97.3 F 05/27/17 07:48 Pulse Rate 81 05/27/17 07:48 Respiratory Rate 12 05/27/17 07:48 Blood Pressure 116/66 05/27/17 07:48 Pulse Oximetry 95 05/27/17 07:48 Rhythm: Normal Sinus Rhythm Height/Weight/BMI: Height 5 ft 10 in Weight 90.7 kg Body Mass Index 28.8 - Constitutional Present: well nourished, well developed - Routine HEENT Exam Eye: Present: EOMI ENT: Present: mucous membranes moist, dentition normal - Routine Respiratory Exam Present: CTA bilaterally. Absent: wheezes - Routine Cardiovascular Exam Present: RRR. Absent: murmur - Routine Abdominal Exam Present: soft, normoactive bowel sounds, non distended. Absent: tenderness - Routine Extremities Exam Present: normal capillary refill Comments: trace edema - Routine Skin Exam Present: dry, warm - Routine Neurological Exam Present: alert, CN II-XII intact Results - Labs CBC & Chem 7: 05/27/17 04:26 05/27/17 04:26 Assessment and Plan (1) Hip fracture, right Current visit: Yes Status: Acute (2) Paroxysmal atrial fibrillation Current visit: Yes Status: Acute Assessment and Plan: Assessment: Right femoral neck fx chronic anticoagulation paroxysmal afib h/o PEs dementia leukocytosis chronic bronchitis HTN Plan: Warfarin resumed. INR 1.22 now. d/w Dr. Macedo. Will start heparin drip while INR subtherapeutic. If no bleeding issues could switch to therapeutic Lovenox in a couple of days. d/w pharmacy. PT/OT. Continuing O2, breathing tx as needed. Continue home meds for HTN, dementia. Supportive care and keep patient oriented to minimize confusion/delirium Hospital Course Summary Disclaimer: The visit summary below is not to be considered part of the above Progress Note. Hospital Course: 05/26/17 14:53 Assessment: Right femoral neck fx chronic anticoagulation paroxysmal afib h/o PEs dementia leukocytosis chronic bronchitis HTN Plan: Resume warfarin now. Will see tomorrow whether lovenox 1mg/kg is OK with Dr. Macedo. Patient moved closer to nursing station to monitor for increased confusion. Continue O2, breathing tx as needed. Continue home meds for HTN, dementia. 05/27/17 10:25 Assessment: Right femoral neck fx chronic anticoagulation paroxysmal afib h/o PEs dementia leukocytosis chronic bronchitis HTN Plan: Warfarin resumed. INR 1.22 now. d/w Dr. Macedo. Will start heparin drip while INR subtherapeutic. If no bleeding issues could switch to therapeutic Lovenox in a couple of days. d/w pharmacy. PT/OT. Continuing O2, breathing tx as needed. Continue home meds for HTN, dementia. Supportive care and keep patient oriented to minimize confusion/delirium
[2017-05-27] MEDS ORDERED: HEPARIN - PHARMACY CONSULT MC ONE (10:23)
[2017-05-27] MEDS: HEPARIN DRIP 20,000 UNIT/500 ML BAG IV SCH ×3 (11:11→22:04)
--- NOTE | 2017-05-27 13:20 | Pharmacy Consult ---
Pharmacy Consult-Heparin - Laboratory Information Heparin Plt Count 128 T/MM3 (130-400) L 05/27/17 04:26 - Consult Information Order by Dr Ortega noted to begin heparin drip on Mr Duran, who is 87 years old and weighs 90.7kg. He has a history of PE's. A previous order for enoxaparin 40mg was entered but dc'ed and heparin started without a bolus. Will check a PTT at 1800 and adjust heparin if needed. Thank you.
--- NOTE | 2017-05-27 13:46 | Orthopedic Progress Note ---
Date: Subjective/Severity of Illness: Mr. Enriquez states he has some hip pain today, but it is better than prior to surgery. He feels pretty weak. It took a 3 person assist to mobilize him today. No other complaints. Orthopedic Objective PO Vital signs: Temperature 95.8 F L 05/27/17 13:23 Pulse Rate 81 05/27/17 13:23 Respiratory Rate 20 05/27/17 13:23 Blood Pressure 124/59 05/27/17 13:23 Pulse Oximetry 90 05/27/17 13:23 Height and Weight: Height 5 ft 10 in Weight 208 lb 12.444 oz Body Mass Index 28.8 - Constitutional General Appearance: Present: no acute distress, well developed, well nourished - Respiratory Exam Present: non-labored - Cardiovascular Exam Present: pedal pulses intact - Abdominal Exam Absent: tenderness - Extremities Exam Extremities: Present: pulses intact. Absent: calf tenderness - Hip Exam Hip Exam: Present: decreased ROM (felxion), decreased ROM (rotation). Absent: abnormal rotation - Surgical Site Incision: dressing intact, no drainage - Integumentary Exam Present: pink, warm, dry - Neurological Exam Present: intact to light touch - Psychiatric Exam Present: alert, normal affect - Labs Result Diagrams: 05/27/17 04:26 05/27/17 04:26 Abnormal lab results 05/26/17 05/27/17 05/27/17 Range/Units 16:15 04:26 04:26 RBC 3.37 L (4.50-5.90) M/MM3 Hgb 12.6 L D 11.0 L D (13.5-17.5) GM/DL Hct 37.0 L D 32.5 L D (41-53) % Plt Count 128 L (130-400) T/MM3 INR (0.99-1.21) Anion Gap 3 L (5-15) MEQ/L BUN 22.0 H (9-20) MG/DL Glucose 114 H (75-110) MG/DL Calcium 8.2 L D (8.4-10.2) MG/DL 05/27/17 Range/Units 04:26 RBC (4.50-5.90) M/MM3 Hgb (13.5-17.5) GM/DL Hct (41-53) % Plt Count (130-400) T/MM3 INR 1.22 H (0.99-1.21) Anion Gap (5-15) MEQ/L BUN (9-20) MG/DL Glucose (75-110) MG/DL Calcium (8.4-10.2) MG/DL H & H 05/24/17 05/26/17 05/27/17 Range/Units 23:37 16:15 04:26 Hgb 15.5 12.6 L D 11.0 L D (13.5-17.5) GM/DL Hct 45.1 37.0 L D 32.5 L D (41-53) % Coagulation 05/24/17 05/25/17 05/25/17 Range/Units 23:37 07:38 16:02 INR 2.72 H 2.75 H 1.85 H (0.99-1.21) 05/25/17 05/26/17 05/27/17 Range/Units 21:47 06:06 04:26 INR 1.57 H 1.37 H 1.22 H (0.99-1.21) Orthopedic Assessment and Plan (1) Displaced fracture of right femoral neck Status: Acute Assessment and Plan: S/P right hip hemiarthroplasty 05/26/[address] Macedo. Anticoagulation as per hospitalist team. He is presently on Heparin. He was admitted on Warfarin for A-fib. From an ortho standpoint return to his Warfarin would also be appropriate for DVT prevention. PT/OT for mobility pain and bowel management medical management per hospitalist team He will need a 3 week post op appointment with Dr. Macedo on discharge. - Anticoagulation Therapy Anticoagulation: other Hospital Course Summary Disclaimer: The visit summary below is not to be considered part of the above Progress Note. Hospital Course: 05/26/17 14:53 Assessment: Right femoral neck fx chronic anticoagulation paroxysmal afib h/o PEs dementia leukocytosis chronic bronchitis HTN Plan: Resume warfarin now. Will see tomorrow whether lovenox 1mg/kg is OK with Dr. Macedo. Patient moved closer to nursing station to monitor for increased confusion. Continue O2, breathing tx as needed. Continue home meds for HTN, dementia. 05/27/17 10:25 Assessment: Right femoral neck fx chronic anticoagulation paroxysmal afib h/o PEs dementia leukocytosis chronic bronchitis HTN Plan: Warfarin resumed. INR 1.22 now. d/w Dr. Macedo. Will start heparin drip while INR subtherapeutic. If no bleeding issues could switch to therapeutic Lovenox in a couple of days. d/w pharmacy. PT/OT. Continuing O2, breathing tx as needed. Continue home meds for HTN, dementia. Supportive care and keep patient oriented to minimize confusion/delirium
--- NOTE | 2017-05-27 14:01 | Operative Note ---
DATE: 05/26/2017 PREOPERATIVE DIAGNOSIS: Right displaced femoral neck fracture. POSTOPERATIVE DIAGNOSIS: Right displaced femoral neck fracture. PROCEDURE: Right hip hemiarthroplasty. SURGEON: Sameer Macedo MD ANESTHESIA: General. COMPLICATIONS: None. EBL & FLUIDS: Please see Anesthetic Record. DESCRIPTION OF PROCEDURE Mr. Duran and his right hip were identified and marked in his hospital room bed. He was brought back to the operating suite and placed under general anesthesia on his hospital room bed. He was then transferred to the OR bed and placed in lateral decubitus position with his right side up. An axillary roll was used. The right lower extremity was prepped and draped in my normal sterile fashion. Timeout was performed. A posterior approach to the hip was utilized. An approximately 12 cm incision was made in the skin. Sharp dissection was carried down to the muscle fascia which was split in line with the skin incision. A Charnley retractor was placed. The short external rotators were identified and detached. The piriformis was tagged. A capsulotomy was performed and the fractured hematoma was evacuated. A femoral neck osteotomy was made and the neck fragment and the head were removed. The head was measured between a 52 and a 53 and we selected a 52 head after trialing. The proximal femur was then prepared with a cookie cutter followed by reaming and then broaching to a size 9 cemented TANYA [employer]- [employer] stem. The bone was then prepared for cementing. A cement restrictor was placed and then we cemented a size 9 cemented TANYA stem at the proper version at about 10-15 degrees of anteversion. Once the cement had cured, we trialed with a standard head. This gave good leg length. He was stable to about 15 degrees of internal rotation at 90 degrees. A joint cocktail was injected throughout the soft tissues. One gram of TXA was placed into the joint and allowed to sit for 3 minutes then irrigated out. The capsulotomy was repaired with #1 Ethibond. The piriformis stem was also repaired with #1 Ethibond. One gram of vancomycin powder was placed into the joint. The muscle fascia was closed with #1 Vicryl. The subcutaneous tissue was closed with 2-0 Vicryl. Running 4-0 quilt Monocryl was used in the subcuticular layer followed by Dermabond on the skin and a sterile dressing. The drapes were then removed. He was placed back into supine position and allowed to awaken from general anesthesia, extubated, and taken to the recovery room under the care of Anesthesia. He tolerated the procedure well and there were no complications. AGUSTIN
[2017-05-27] MEDS ORDERED: ALBUTEROL 2.5mg/3ml (0.083%) NEB AEROSOL PRN ×2 (14:36→14:46)
[2017-05-27] MEDS ORDERED: HEPARIN 1,000unit/ml INJECTION 10ml IVP ONE (19:59)
[2017-05-27] MEDS: HEPARIN 1,000unit/ml INJECTION 10ml IVP ONE (21:15)
[2017-05-27] MEDS: HYDROCODONE/APAP 5mg/325mg TABLET PO PRN (21:46)
[2017-05-28] MEDS ORDERED: DiltiaZEM IR 30 MG TABLET PO PRN ×2 (00:26→05:58)
[2017-05-28] MEDS: HYDROCODONE/APAP 5mg/325mg TABLET PO PRN (02:18)
[2017-05-28] MEDS: HEPARIN DRIP 20,000 UNIT/500 ML BAG IV SCH ×2 (02:26→11:04)
[2017-05-28] MEDS: HEPARIN 1,000unit/ml INJECTION 10ml IVP ONE (05:07)
--- NOTE | 2017-05-28 07:30 | Orthopedic Progress Note ---
Date: Subjective/Severity of Illness: Mr. Enriquez states he has some hip pain today, but it is better than prior to surgery. He feels pretty weak. No other complaints. Orthopedic Objective PO Vital signs: Temperature 96.3 F L 05/28/17 07:00 Pulse Rate 91 05/28/17 07:00 Respiratory Rate 16 05/28/17 07:00 Blood Pressure 117/76 05/28/17 07:00 Pulse Oximetry 94 05/28/17 07:00 Height and Weight: Height 5 ft 10 in Weight 208 lb 12.444 oz Body Mass Index 28.8 - Constitutional General Appearance: Present: no acute distress, well developed, well nourished - Respiratory Exam Present: non-labored - Cardiovascular Exam Present: pedal pulses intact - Abdominal Exam Absent: tenderness - Extremities Exam Extremities: Present: pulses intact. Absent: calf tenderness - Hip Exam Hip Exam: Present: decreased ROM (felxion), decreased ROM (rotation). Absent: abnormal rotation - Surgical Site Incision: dressing intact, no drainage - Integumentary Exam Present: pink, warm, dry - Neurological Exam Present: intact to light touch - Psychiatric Exam Present: alert, normal affect - Labs Result Diagrams: 05/28/17 04:03 05/27/17 04:26 Abnormal lab results 05/28/17 05/28/17 Range/Units 04:03 04:03 RBC 3.67 L (4.50-5.90) M/MM3 Hgb 11.6 L (13.5-17.5) GM/DL Hct 35.4 L (41-53) % APTT 61.3 H (24-36) SEC H & H 05/24/17 05/26/17 05/27/17 Range/Units 23:37 16:15 04:26 Hgb 15.5 12.6 L D 11.0 L D (13.5-17.5) GM/DL Hct 45.1 37.0 L D 32.5 L D (41-53) % 05/28/17 Range/Units 04:03 Hgb 11.6 L (13.5-17.5) GM/DL Hct 35.4 L (41-53) % Coagulation 05/24/17 05/25/17 05/25/17 Range/Units 23:37 07:38 16:02 INR 2.72 H 2.75 H 1.85 H (0.99-1.21) 05/25/17 05/26/17 05/27/17 Range/Units 21:47 06:06 04:26 INR 1.57 H 1.37 H 1.22 H (0.99-1.21) Orthopedic Assessment and Plan (1) Displaced fracture of right femoral neck Status: Acute Assessment and Plan: S/P right hip hemiarthroplasty 05/26/[address] Macedo. Anticoagulation as per hospitalist team. He is presently on Heparin. He was admitted on Warfarin for A-fib. From an ortho standpoint return to his Warfarin would also be appropriate for DVT prevention. PT/OT for mobility pain and bowel management medical management per hospitalist team He will need a 3 week post op appointment with Dr. Macedo on discharge. - Anticoagulation Therapy Anticoagulation: other Hospital Course Summary Disclaimer: The visit summary below is not to be considered part of the above Progress Note. Hospital Course: 05/26/17 14:53 Assessment: Right femoral neck fx chronic anticoagulation paroxysmal afib h/o PEs dementia leukocytosis chronic bronchitis HTN Plan: Resume warfarin now. Will see tomorrow whether lovenox 1mg/kg is OK with Dr. Macedo. Patient moved closer to nursing station to monitor for increased confusion. Continue O2, breathing tx as needed. Continue home meds for HTN, dementia. 05/27/17 10:25 Assessment: Right femoral neck fx chronic anticoagulation paroxysmal afib h/o PEs dementia leukocytosis chronic bronchitis HTN Plan: Warfarin resumed. INR 1.22 now. d/w Dr. Macedo. Will start heparin drip while INR subtherapeutic. If no bleeding issues could switch to therapeutic Lovenox in a couple of days. d/w pharmacy. PT/OT. Continuing O2, breathing tx as needed. Continue home meds for HTN, dementia. Supportive care and keep patient oriented to minimize confusion/delirium
[2017-05-28] MEDS: RIVASTIGMINE 9.5 MG/24 HR PATCH TD SCH (08:24)
[2017-05-28] MEDS: DONEPEZIL 10 MG TABLET PO SCH (08:24)
[2017-05-28] MEDS ORDERED: WARFARIN - PHARMACY CONSULT MC ONE (10:01)
--- NOTE | 2017-05-28 11:09 | Progress Note ---
<Kayli Mcneil D - Last Filed: 05/28/17 11:05> - Date 05/28/17 Subjective: Mr. Duran was taking a break from therapy. His nurse reports that he was orthostatic with BP dropping from 104/67 sitting to 87/54 standing and he c/o feeling dizzy. He has had good UO via Couch. He's also been constipated and his son reports that he takes Metamucil on a daily basis and his added that he sometimes takes MOM. He's been weak in general and having some difficulty with mobility. He requires thickened liquids for dysphagia and his RN isn't convinced that he's taking in enough fluids. Objective Vital signs: Temperature 96.3 F L 05/28/17 07:00 Pulse Rate 121 H 05/28/17 10:36 Respiratory Rate 16 05/28/17 07:00 Blood Pressure 87/54 05/28/17 10:36 Pulse Oximetry 94 05/28/17 07:00 Rhythm: Atrial Fibrillation with RVR Height/Weight/BMI: Height 1.78 m Weight 92.5 kg Body Mass Index 28.8 - Constitutional Present: no acute distress, well nourished, well developed - Routine HEENT Exam Eye: Absent: conjunctival icterus, scleral injection - Routine Respiratory Exam Present: CTA bilaterally - Routine Cardiovascular Exam Present: S1, S2, irregularly irregular - Routine Abdominal Exam Present: normoactive bowel sounds, non tender, distended (mild) - Routine Exam Comments: Couch to DD - Routine Extremities Exam Present: edema (expected postop) - Routine Skin Exam Present: dry, warm - Routine Neurological Exam Present: alert. Absent: facial asymmetry - Routine Psychiatric Exam Present: normal affect, normal thought process Results - Labs CBC & Chem 7: 05/28/17 04:03 05/27/17 04:26 Assessment and Plan (1) Hip fracture, right Current visit: Yes Status: Acute (2) Paroxysmal atrial fibrillation Current visit: Yes Status: Acute Assessment and Plan: Assessment: Right femoral neck fx s/p right hip hemiarthroplasty 05/26/17 Orthostatic hypotension (symptomatic) leukocytosis (stress rxn) mild normocytic anemia chronic anticoagulation paroxysmal afib h/o PEs dementia chronic bronchitis HTN Plan: POD #2 orthostatic with BP dropping from 104/67 sitting to 87/54 standing - will ask nurse to place 2nd IV line and infuse 500 mL NS bolus. Check BMP. A-fib with RVR with rates 110-120s. Received PRN dose of cardizem last night. On metoprolol succinate 25 mg daily. If HR does not improve with fluid bolus consider addition regular cardizem. Consult pharmacy for Coumadin dosing. Continue heparin to bridge; consider switching to Lovenox tomorrow if no evidence of bleeding. Labs: leukocytosis resolved; hgb slightly decreased but stable postop at 11.6. Bowel regimen: start Metamucil and Senna Plus; add dulcolax supp and MOM PRN. D/W Dr. Lucero and RN. DVT Prophylaxis: Coumadin, Heparin drip Hospital Course Summary Disclaimer: The visit summary below is not to be considered part of the above Progress Note. Hospital Course: 05/26/17 14:53 Assessment: Right femoral neck fx chronic anticoagulation paroxysmal afib h/o PEs dementia leukocytosis chronic bronchitis HTN Plan: Resume warfarin now. Will see tomorrow whether lovenox 1mg/kg is OK with Dr. Macedo. Patient moved closer to nursing station to monitor for increased confusion. Continue O2, breathing tx as needed. Continue home meds for HTN, dementia. 05/27/17 10:25 Assessment: Right femoral neck fx chronic anticoagulation paroxysmal afib h/o PEs dementia leukocytosis chronic bronchitis HTN Plan: Warfarin resumed. INR 1.22 now. d/w Dr. Macedo. Will start heparin drip while INR subtherapeutic. If no bleeding issues could switch to therapeutic Lovenox in a couple of days. d/w pharmacy. PT/OT. Continuing O2, breathing tx as needed. Continue home meds for HTN, dementia. Supportive care and keep patient oriented to minimize confusion/delirium 05/28/17 Assessment: Right femoral neck fx s/p right hip hemiarthroplasty 05/26/17 Orthostatic hypotension (symptomatic) leukocytosis (stress rxn) mild normocytic anemia chronic anticoagulation paroxysmal afib h/o PEs dementia chronic bronchitis HTN Plan: POD #2 orthostatic with BP dropping from 104/67 sitting to 87/54 standing - will ask nurse to place 2nd IV line and infuse 500 mL NS bolus. Check BMP. A-fib with RVR with rates 110-120s. Received PRN dose of cardizem last night. On metoprolol succinate 25 mg daily. If HR does not improve with fluid bolus consider addition regular cardizem. Consult pharmacy for Coumadin dosing. Continue heparin to bridge; consider switching to Lovenox tomorrow if no evidence of bleeding. Labs: leukocytosis resolved; hgb slightly decreased but stable postop at 11.6. Bowel regimen: start Metamucil and Senna Plus; add dulcolax supp and MOM PRN. <Daniel Lucero D - Last Filed: 05/28/17 13:33> - Date 05/28/17 Objective Vital signs: Temperature 96.3 F L 05/28/17 07:00 Pulse Rate 121 H 05/28/17 10:36 Respiratory Rate 16 05/28/17 07:00 Blood Pressure 87/54 05/28/17 10:36 Pulse Oximetry 94 05/28/17 07:00 Height/Weight/BMI: Height 1.78 m Weight 92.5 kg Body Mass Index 28.8 Results - Labs CBC & Chem 7: 05/28/17 04:03 05/28/17 04:03 Assessment and Plan (1) Hip fracture, right Current visit: Yes Status: Acute (2) Paroxysmal atrial fibrillation Current visit: Yes Status: Acute Assessment and Plan: Assessment Right femoral neck fx s/p right hip hemiarthroplasty 05/26/17 Orthostatic hypotension (symptomatic) Leukocytosis (stress rxn) Mild normocytic anemia Chronic anticoagulation with warfarin Paroxysmal afib h/o PEs Dementia Chronic bronchitis HTN Have independently interviewed and examined pt. Chart reviewed. Cased discussed with nursing and my OUTPATIENT CODING SPECIALIST. Care plan developed with my supervision; agree with above. Doing okay overall. Pain controlled. Tolerating pain medications. Breathing well -not SOA or congested, no pain with breathing. No chest pain. No nausea. Lungs: decreased CV: Irregularly irregular AB: soft nt/nd +BS MSE: awake alert appropriate Plan: Will stop Heparin drip and initiate Lovenox 140mg SQ daily starting today at 1700. Coumadin restarted-monitor INR. Start Bladder retraining. Metabolic bone consult-will check Vit D level and add Calcium with Vit D 600mg BID. IVF bolus given secondary to orthostasis. Continue pain control. Encourage therapy. Likely transfer to skilled care in near future if continues to do well. Resuscitation Status: Full Code Hospital Course Summary Disclaimer: The visit summary below is not to be considered part of the above Progress Note.
[2017-05-28] MEDS ORDERED: BISACODYL 10 MG SUPPOSITORY RECTALLY PRN (11:21)
[2017-05-28] MEDS ORDERED: WARFARIN 5 MG TABLET PO SCH (12:00)
[2017-05-28] MEDS: LR 1,000 ML IV SCH (13:23)
[2017-05-28] MEDS ORDERED: ENOXAPARIN 150 MG/ML INJECTION SQ SCH (17:00)
[2017-05-28] MEDS: ENOXAPARIN 150 MG/ML INJECTION SQ SCH (17:20)
[2017-05-28] MEDS ORDERED: METOPROLOL 5mg/5ml INJECTION IVP ONE ×2 (17:41→18:08)
[2017-05-28] MEDS ORDERED: DiltiaZEM 25 MG/5 ML INJECTION IVP ONE ×2 (18:24→19:57)
[2017-05-28] MEDS ORDERED: DiltiaZEM 25 MG/5 ML INJECTION IVP PRN (20:17)
[2017-05-28] MEDS: CALCIUM 600 + VIT D 400 TABLET PO SCH (21:00)
[2017-05-28] MEDS: SENNA + DOCUSATE TABLET PO SCH (21:00)
--- NOTE | 2017-05-29 07:20 | Pharmacy Consult ---
Pharmacy Consult-Warfarin - Laboratory Information 05/24/17 05/25/17 05/25/17 23:37 07:38 16:02 INR 2.72 H 2.75 H 1.85 H 05/25/17 05/26/17 05/27/17 21:47 06:06 04:26 INR 1.57 H 1.37 H 1.22 H 05/29/17 04:30 INR 1.17 - Consult Information Patient began warfarin protocol with a 5mg p.o. dose on 05/28. INR of 1.17 today as a result of vitamin k doses administered earlier. Will give 7.5mg of warfarin today at noon. Thanks
[2017-05-29] MEDS: CALCIUM 600 + VIT D 400 TABLET PO SCH ×2 (09:07→21:02)
[2017-05-29] MEDS: RIVASTIGMINE 9.5 MG/24 HR PATCH TD SCH (09:08)
[2017-05-29] MEDS: PSYLLIUM PACKET PO SCH (09:08)
[2017-05-29] MEDS: DONEPEZIL 10 MG TABLET PO SCH (09:08)
[2017-05-29] MEDS: SENNA + DOCUSATE TABLET PO SCH ×2 (09:08→21:02)
--- NOTE | 2017-05-29 11:05 | Progress Note ---
<Alexandrea Garrido V - Last Filed: 05/29/17 10:59> - Date 05/29/17 Subjective: Mina is seen today in follow up. He is concerned that his bowels have not moved since "last Saturday". He was noted to be hypoxic this morning room air at 89%. Denies feeling short of breath or chest pain. Abdomen is soft and non tender however mildly distended. Bowel sounds are active on auscultation. Telemetry revels sinus rhythm in the 70's. Was in A-fib with RVR in the 160's last evening. Objective Vital signs: Temperature 98.0 F 05/29/17 07:40 Pulse Rate 74 05/29/17 10:09 Respiratory Rate 16 05/29/17 07:40 Blood Pressure 173/90 H 05/29/17 07:40 Pulse Oximetry 89 L 05/29/17 07:40 Rhythm: Normal Sinus Rhythm Height/Weight/BMI: Height 1.78 m Weight 92.3 kg Body Mass Index 28.8 - Constitutional Present: no acute distress, well nourished, well developed - Routine HEENT Exam Eye: Present: EOMI ENT: Present: mucous membranes moist, dentition normal - Routine Respiratory Exam Present: CTA bilaterally. Absent: wheezes - Routine Cardiovascular Exam Present: RRR, S1, S2. Absent: murmur - Routine Abdominal Exam Present: soft, normoactive bowel sounds, non distended. Absent: tenderness - Routine Extremities Exam Present: full ROM, pulses intact - Routine Skin Exam Present: intact, dry, warm - Routine Neurological Exam Present: alert, CN II-XII intact, moving all extremities - Routine Lymphatic Exam Lymphatic: Absent: adenopathy - Routine Psychiatric Exam Present: cooperative Results - Labs CBC & Chem 7: 05/29/17 04:30 05/29/17 04:30 Assessment and Plan (1) Hip fracture, right Current visit: Yes Status: Acute (2) Paroxysmal atrial fibrillation Current visit: Yes Status: Acute Assessment and Plan: Assessment Right femoral neck fx s/p right hip hemiarthroplasty 05/26/17 Orthostatic hypotension (symptomatic) Leukocytosis (stress rxn) Mild normocytic anemia Chronic anticoagulation with warfarin Paroxysmal afib h/o PEs Dementia Chronic bronchitis HTN Plan Spoke with nursing staff regarding aggressive bowel motivation. He was given the following this morning- Metamucil and senna plus. Patient has not had a bowel movement by this afternoon have asked nursing staff to utilize Dulcolax suppository Will discontinue Couch catheter Continue to monitor telemetry, patient has been in normal sinus rate in the 70s overnight. Cardizem was resumed at 120 milligrams daily Lovenox 140 milligrams subcutaneous daily bridge with warfarin, INR today 1.17. Continue with postoperative pain control. Given the run of atrial fibrillation RVR. Would like to monitor patient on oral Cardizem today. Hopeful for possible discharge to [facility] for SNU tomorrow. Hospital Course Summary Disclaimer: The visit summary below is not to be considered part of the above Progress Note. Hospital Course: 05/26/17 14:53 Assessment: Right femoral neck fx chronic anticoagulation paroxysmal afib h/o PEs dementia leukocytosis chronic bronchitis HTN Plan: Resume warfarin now. Will see tomorrow whether lovenox 1mg/kg is OK with Dr. Macedo. Patient moved closer to nursing station to monitor for increased confusion. Continue O2, breathing tx as needed. Continue home meds for HTN, dementia. 05/27/17 10:25 Assessment: Right femoral neck fx chronic anticoagulation paroxysmal afib h/o PEs dementia leukocytosis chronic bronchitis HTN Plan: Warfarin resumed. INR 1.22 now. d/w Dr. Macedo. Will start heparin drip while INR subtherapeutic. If no bleeding issues could switch to therapeutic Lovenox in a couple of days. d/w pharmacy. PT/OT. Continuing O2, breathing tx as needed. Continue home meds for HTN, dementia. Supportive care and keep patient oriented to minimize confusion/delirium 05/28/17 Assessment: Right femoral neck fx s/p right hip hemiarthroplasty 05/26/17 Orthostatic hypotension (symptomatic) leukocytosis (stress rxn) mild normocytic anemia chronic anticoagulation paroxysmal afib h/o PEs dementia chronic bronchitis HTN Plan: POD #2 orthostatic with BP dropping from 104/67 sitting to 87/54 standing - will ask nurse to place 2nd IV line and infuse 500 mL NS bolus. Check BMP. A-fib with RVR with rates 110-120s. Received PRN dose of cardizem last night. On metoprolol succinate 25 mg daily. If HR does not improve with fluid bolus consider addition regular cardizem. Consult pharmacy for Coumadin dosing. Continue heparin to bridge; consider switching to Lovenox tomorrow if no evidence of bleeding. Labs: leukocytosis resolved; hgb slightly decreased but stable postop at 11.6. Bowel regimen: start Metamucil and Senna Plus; add dulcolax supp and MOM PRN. 05/29/17- Plan Spoke with nursing staff regarding aggressive bowel motivation. He was given the following this morning- Metamucil and senna plus. Patient has not had a bowel movement by this afternoon have asked nursing staff to utilize Dulcolax suppository Will discontinue Couch catheter Continue to monitor telemetry, patient has been in normal sinus rate in the 70s overnight. Cardizem was resumed at 120 milligrams daily Lovenox 140 milligrams subcutaneous daily bridge with warfarin, INR today 1.17. Continue with postoperative pain control. Given the run of atrial fibrillation RVR. Would like to monitor patient on oral Cardizem today. Hopeful for possible discharge to [facility] for SNU tomorrow. <Daniel Lucero D - Last Filed: 05/29/17 18:40> - Date 05/29/17 Objective Vital signs: Temperature 96.2 F L 05/29/17 16:41 Pulse Rate 68 05/29/17 17:21 Respiratory Rate 16 05/29/17 16:41 Blood Pressure 117/67 05/29/17 16:41 Pulse Oximetry 92 05/29/17 16:41 Height/Weight/BMI: Height 1.78 m Weight 92.3 kg Body Mass Index 28.8 Results - Labs CBC & Chem 7: 05/29/17 04:30 05/29/17 04:30 Assessment and Plan (1) Hip fracture, right Current visit: Yes Status: Acute (2) Paroxysmal atrial fibrillation Current visit: Yes Status: Acute Assessment and Plan: Assessment Right femoral neck fx s/p right hip hemiarthroplasty 05/26/17 Orthostatic hypotension (symptomatic) Leukocytosis (stress rxn) Mild normocytic anemia Chronic anticoagulation with warfarin Paroxysmal afib h/o PEs Dementia Chronic bronchitis HTN Have independently interviewed and examined pt. Chart reviewed. Case discussed with CM and my [employer]. Care plan developed with my supervision; agree with above. Doing well this evening. Pain controlled-some discomfort with movements and activities, but not excruciating. Tolerating therapy. Not feeling more unsteady with positional changes than he has for the past several years. Happy he had a good bowel movement. Breathing well. Denies chest pressure, pain or palpitations. No nausea. Lungs: decreased, no distress CV irregularly irregular MSE: awake alert appropriate Plan: HR improved with addition of Cardizem 120mg daily. Couch removed. Bowels moving. INR still subtherapeutic-continue Lovenox. Recheck lab in am. Likely discharge to Skilled care tomorrow if continues to do well. Time spent with patient care 25 minutes. DVT Prophylaxis: Lovenox, Coumadin Resuscitation Status: Full Code Hospital Course Summary Disclaimer: The visit summary below is not to be considered part of the above Progress Note.
[2017-05-29] MEDS ORDERED: WARFARIN 7.5 MG TABLET PO SCH (12:00)
--- NOTE | 2017-05-29 16:37 | Orthopedic Progress Note ---
Date: Subjective/Severity of Illness: Mr Duran was seen this AM. He was up to the chair and appeared in no distress. He expresses concern about difficulties with mobility. Plan is discharge to [facility] . Orthopedic Objective PO Vital signs: Temperature 96.7 F L 05/29/17 12:01 Pulse Rate 61 05/29/17 12:01 Respiratory Rate 16 05/29/17 12:01 Blood Pressure 127/70 05/29/17 12:01 Pulse Oximetry 92 05/29/17 12:01 Height and Weight: Height 5 ft 10 in Weight 203 lb 7.787 oz Body Mass Index 28.8 - Constitutional General Appearance: Present: alert, no acute distress - Respiratory Exam Present: non-labored - Cardiovascular Exam Present: pedal pulses intact - Extremities Exam Extremities: Present: pulses intact. Absent: calf tenderness - Surgical Site Incision: dressing intact, no drainage - Integumentary Exam Present: pink, warm, dry - Neurological Exam Present: intact to light touch - Psychiatric Exam Present: alert, normal affect - Labs Result Diagrams: 05/29/17 04:30 05/29/17 04:30 Abnormal lab results 05/29/17 05/29/17 Range/Units 04:30 04:30 RBC 3.69 L (4.50-5.90) M/MM3 Hgb 11.6 L (13.5-17.5) GM/DL Hct 35.6 L (41-53) % Chloride 108 H (98-107) MEQ/L Albumin 2.9 L (3.5-5.0) G/DL Albumin/Globulin Ratio 0.9 L (1.1-2.2) RATIO H & H 05/24/17 05/26/17 05/27/17 Range/Units 23:37 16:15 04:26 Hgb 15.5 12.6 L D 11.0 L D (13.5-17.5) GM/DL Hct 45.1 37.0 L D 32.5 L D (41-53) % 05/28/17 05/29/17 Range/Units 04:03 04:30 Hgb 11.6 L 11.6 L (13.5-17.5) GM/DL Hct 35.4 L 35.6 L (41-53) % Coagulation 10/05/25/17 05/25/17 Range/Units 23:37 07:38 16:02 INR 2.72 H 2.75 H 1.85 H (0.99-1.21) 05/25/17 05/26/17 05/27/17 Range/Units 21:47 06:06 04:26 INR 1.57 H 1.37 H 1.22 H (0.99-1.21) 05/29/17 Range/Units 04:30 INR 1.17 (0.99-1.21) Orthopedic Assessment and Plan (1) Displaced fracture of right femoral neck Status: Acute Assessment and Plan: S/P right hip hemiarthroplasty 05/26/[address] Macedo. Anticoagulation as per hospitalist team. Lovenox bridge to Warfarin for A-fib. From an ortho standpoint return to his Warfarin would also be appropriate for DVT prevention. PT/OT for mobility pain and bowel management medical management per hospitalist team He will need a 3 week post op appointment with Isrrael AYALA on discharge. Hospital Course Summary Disclaimer: The visit summary below is not to be considered part of the above Progress Note. Hospital Course: 05/26/17 14:53 Assessment: Right femoral neck fx chronic anticoagulation paroxysmal afib h/o PEs dementia leukocytosis chronic bronchitis HTN Plan: Resume warfarin now. Will see tomorrow whether lovenox 1mg/kg is OK with Dr. Macedo. Patient moved closer to nursing station to monitor for increased confusion. Continue O2, breathing tx as needed. Continue home meds for HTN, dementia. 05/27/17 10:25 Assessment: Right femoral neck fx chronic anticoagulation paroxysmal afib h/o PEs dementia leukocytosis chronic bronchitis HTN Plan: Warfarin resumed. INR 1.22 now. d/w Dr. Macedo. Will start heparin drip while INR subtherapeutic. If no bleeding issues could switch to therapeutic Lovenox in a couple of days. d/w pharmacy. PT/OT. Continuing O2, breathing tx as needed. Continue home meds for HTN, dementia. Supportive care and keep patient oriented to minimize confusion/delirium 05/28/17 Assessment: Right femoral neck fx s/p right hip hemiarthroplasty 05/26/17 Orthostatic hypotension (symptomatic) leukocytosis (stress rxn) mild normocytic anemia chronic anticoagulation paroxysmal afib h/o PEs dementia chronic bronchitis HTN Plan: POD #2 orthostatic with BP dropping from 104/67 sitting to 87/54 standing - will ask nurse to place 2nd IV line and infuse 500 mL NS bolus. Check BMP. A-fib with RVR with rates 110-120s. Received PRN dose of cardizem last night. On metoprolol succinate 25 mg daily. If HR does not improve with fluid bolus consider addition regular cardizem. Consult pharmacy for Coumadin dosing. Continue heparin to bridge; consider switching to Lovenox tomorrow if no evidence of bleeding. Labs: leukocytosis resolved; hgb slightly decreased but stable postop at 11.6. Bowel regimen: start Metamucil and Senna Plus; add dulcolax supp and MOM PRN. 05/29/17- Plan Spoke with nursing staff regarding aggressive bowel motivation. He was given the following this morning- Metamucil and senna plus. Patient has not had a bowel movement by this afternoon have asked nursing staff to utilize Dulcolax suppository Will discontinue Couch catheter Continue to monitor telemetry, patient has been in normal sinus rate in the 70s overnight. Cardizem was resumed at 120 milligrams daily Lovenox 140 milligrams subcutaneous daily bridge with warfarin, INR today 1.17. Continue with postoperative pain control. Given the run of atrial fibrillation RVR. Would like to monitor patient on oral Cardizem today. Hopeful for possible discharge to [facility] for SNU tomorrow.
[2017-05-29] MEDS: ENOXAPARIN 150 MG/ML INJECTION SQ SCH (17:19)
--- NOTE | 2017-05-30 07:59 | Orthopedic Progress Note ---
Date: Subjective/Severity of Illness: Mr. Enriquez was on the commode when I stopped by to round. No issues according to nursing staff aside from limited mobility. Orthopedic Objective PO Vital signs: Temperature 96.1 F L 05/30/17 07:21 Pulse Rate 93 05/30/17 07:31 Respiratory Rate 16 05/30/17 07:21 Blood Pressure 145/75 H 05/30/17 07:31 Pulse Oximetry 90 05/30/17 07:21 Height and Weight: Height 5 ft 10 in Weight 203 lb 7.787 oz Body Mass Index 28.8 - Constitutional General Appearance: Present: alert, no acute distress - Respiratory Exam Present: non-labored - Cardiovascular Exam Present: pedal pulses intact - Abdominal Exam Absent: tenderness - Extremities Exam Extremities: Present: pulses intact. Absent: calf tenderness - Hip Exam Hip Exam: Present: decreased ROM (felxion), decreased ROM (rotation). Absent: abnormal rotation - Surgical Site Incision: dressing intact, no drainage - Integumentary Exam Present: pink, warm, dry - Lymphatic Lymphatic: Absent: adenopathy - Neurological Exam Present: intact to light touch - Psychiatric Exam Present: alert, normal affect - Labs Result Diagrams: 05/30/17 04:36 05/30/17 04:36 Abnormal lab results 05/30/17 05/30/17 05/30/17 Range/Units 04:36 04:36 04:36 RBC 3.69 L (4.50-5.90) M/MM3 Hgb 11.8 L (13.5-17.5) GM/DL Hct 35.5 L (41-53) % INR 1.22 H (0.99-1.21) Specimen Hemolysis 39 H (0-25) H & H 05/24/17 05/26/17 05/27/17 Range/Units 23:37 16:15 04:26 Hgb 15.5 12.6 L D 11.0 L D (13.5-17.5) GM/DL Hct 45.1 37.0 L D 32.5 L D (41-53) % 05/28/17 05/29/17 05/30/17 Range/Units 04:03 04:30 04:36 Hgb 11.6 L 11.6 L 11.8 L (13.5-17.5) GM/DL Hct 35.4 L 35.6 L 35.5 L (41-53) % Coagulation 05/24/17 05/25/17 05/25/17 Range/Units 23:37 07:38 16:02 INR 2.72 H 2.75 H 1.85 H (0.99-1.21) 05/25/17 05/26/17 05/27/17 Range/Units 21:47 06:06 04:26 INR 1.57 H 1.37 H 1.22 H (0.99-1.21) 05/29/17 05/30/17 Range/Units 04:30 04:36 INR 1.17 1.22 H (0.99-1.21) Orthopedic Assessment and Plan (1) Displaced fracture of right femoral neck Status: Acute Assessment and Plan: S/P right hip hemiarthroplasty 05/26/[address] Macedo. Anticoagulation as per hospitalist team. Lovenox bridge to Warfarin for A-fib. From an ortho standpoint return to his Warfarin would also be appropriate for DVT prevention. PT/OT for mobility pain and bowel management medical management per hospitalist team He will need a 3 week post op appointment with Is[facility] AYALA on discharge. - Anticoagulation Therapy Anticoagulation: Coumadin therapy with Lovenox bridge x30 days Hospital Course Summary Disclaimer: The visit summary below is not to be considered part of the above Progress Note. Hospital Course: 05/26/17 14:53 Assessment: Right femoral neck fx chronic anticoagulation paroxysmal afib h/o PEs dementia leukocytosis chronic bronchitis HTN Plan: Resume warfarin now. Will see tomorrow whether lovenox 1mg/kg is OK with Dr. Macedo. Patient moved closer to nursing station to monitor for increased confusion. Continue O2, breathing tx as needed. Continue home meds for HTN, dementia. 05/27/17 10:25 Assessment: Right femoral neck fx chronic anticoagulation paroxysmal afib h/o PEs dementia leukocytosis chronic bronchitis HTN Plan: Warfarin resumed. INR 1.22 now. d/w Dr. Macedo. Will start heparin drip while INR subtherapeutic. If no bleeding issues could switch to therapeutic Lovenox in a couple of days. d/w pharmacy. PT/OT. Continuing O2, breathing tx as needed. Continue home meds for HTN, dementia. Supportive care and keep patient oriented to minimize confusion/delirium 05/28/17 Assessment: Right femoral neck fx s/p right hip hemiarthroplasty 05/26/17 Orthostatic hypotension (symptomatic) leukocytosis (stress rxn) mild normocytic anemia chronic anticoagulation paroxysmal afib h/o PEs dementia chronic bronchitis HTN Plan: POD #2 orthostatic with BP dropping from 104/67 sitting to 87/54 standing - will ask nurse to place 2nd IV line and infuse 500 mL NS bolus. Check BMP. A-fib with RVR with rates 110-120s. Received PRN dose of cardizem last night. On metoprolol succinate 25 mg daily. If HR does not improve with fluid bolus consider addition regular cardizem. Consult pharmacy for Coumadin dosing. Continue heparin to bridge; consider switching to Lovenox tomorrow if no evidence of bleeding. Labs: leukocytosis resolved; hgb slightly decreased but stable postop at 11.6. Bowel regimen: start Metamucil and Senna Plus; add dulcolax supp and MOM PRN. 05/29/17- Plan Spoke with nursing staff regarding aggressive bowel motivation. He was given the following this morning- Metamucil and senna plus. Patient has not had a bowel movement by this afternoon have asked nursing staff to utilize Dulcolax suppository Will discontinue Couch catheter Continue to monitor telemetry, patient has been in normal sinus rate in the 70s overnight. Cardizem was resumed at 120 milligrams daily Lovenox 140 milligrams subcutaneous daily bridge with warfarin, INR today 1.17. Continue with postoperative pain control. Given the run of atrial fibrillation RVR. Would like to monitor patient on oral Cardizem today. Hopeful for possible discharge to [facility] for SNU tomorrow.
[2017-05-30] MEDS: SENNA + DOCUSATE TABLET PO SCH (08:06)
[2017-05-30] MEDS: CALCIUM 600 + VIT D 400 TABLET PO SCH (08:07)
[2017-05-30] MEDS: PSYLLIUM PACKET PO SCH (08:07)
[2017-05-30] MEDS: DONEPEZIL 10 MG TABLET PO SCH (08:07)
[2017-05-30] MEDS: RIVASTIGMINE 9.5 MG/24 HR PATCH TD SCH (08:07)
--- NOTE | 2017-05-30 09:07 | Pharmacy Consult ---
Pharmacy Consult-Warfarin - Laboratory Information 05/24/17 05/25/17 05/25/17 23:37 07:38 16:02 INR 2.72 H 2.75 H 1.85 H 05/25/17 05/26/17 05/27/17 21:47 06:06 04:26 INR 1.57 H 1.37 H 1.22 H 05/29/17 05/30/17 04:30 04:36 INR 1.17 1.22 H - Consult Information 87 y.o. Male with history of a. fib. and chronic anticoagulation with warfarin therapy. Warfarin per pharmacy protocol ordered. Goal INR 2.0 to 3.0. Vitamin K x 3 doses given to patient to normalize INR in preparation for surgical repair of R. femoral neck fracture. Patient home dose = Warfarin 5 mg po daily. today's INR is sub-therapeutic as a result of the effects of pre-op Vitamin K. Will give Warfarin 6 mg po today. Pharmacy will monitor and adjust as needed. Thank you, Chloe Strickland [facility]
--- NOTE | 2017-05-30 10:29 | Extended Care Facility Orders ---
Admission Orders Admit to:: [facility] Allergies/Adverse Reactions: Allergies No Known Allergies Allergy (Verified 05/27/17 14:58) Admitting Diagnosis: Right femoral neck fracture Admitting Physician: Daniel Lucero MD Attending Physician: Daniel Lucero MD Code Status: Full Code Anticiapted Length of Stay: 30 days or less Rehab Potential: good Rehab Prognosis: fair, good Diet: 05/29/17 Lunch Regular Diet [DIET] Diet Modifications: Fluid Consistency: SYRNEC Food Consistency: MECSOF May use Facility Protocol or Standing Orders: Yes May have flu vaccine: Yes Evaluations/Treatment: PT, OT [facility] Certification: I certify that SNF services are required to be given on an Inpatient basis because of the patients need for nursing home care on a continuing basis for the condition(s) for which he/she received inpatient hospital services prior to his/her transfer to the SNF. SNF inpatient care is necessary for the following reasons Indication for [facility]: Other (PT,OT) - Additional Information In Event of Arrest: Start CPR,call 911,send patient to the ER Referrals: Clinton Foley [Family Provider] - (Follow up in 1 week. Will need INR on sunday 06/03.) Isrrael Parrish PA [Physician Promotional Demonstrator] - 3 Weeks (Please schedule follow-up appointment for 3 weeks)
--- NOTE | 2017-05-30 10:38 | Discharge Summary ---
<Alexandrea Garrido V - Last Filed: 05/30/17 10:35> Discharge Information Date of admission: 05/24/17 22:42 Anticipated date of discharge: 05/30/17 Attending Physician: Daniel Lucero MD Primary care physician: Clinton Foley Consults: 05/24/17 21:36 Physician Consult [CONS] Routine Consulting Provider: Sameer Macedo Reason For Exam: R femoral neck fracture Ordering Provider has Notified Orthopedic Rn: Yes 05/28/17 13:26 Physician Consult [CONS] Routine Consulting Provider: Naga Ventura Reason For Exam: Metabolic Bone Disease Ordering Provider has Notified Orthopedic Rn: No - Discharge Diagnosis (1) Hip fracture, right Status: Acute (2) Paroxysmal atrial fibrillation Status: Acute Right femoral neck fx s/p right hip hemiarthroplasty 05/26/17 Orthostatic hypotension (symptomatic) leukocytosis (stress rxn) mild normocytic anemia chronic anticoagulation paroxysmal afib h/o PEs dementia chronic bronchitis HTN - Laboratory Labs: 05/30/17 04:36 05/30/17 04:36 - Microbiology None - Radiology Radiology: 05/26- Pelvis Xray- Impression: Anatomic alignment status post left proximal femoral nailing. - Pathology None History of Present Illness HPI: Please note that the patient was seen via telemedicine with nursing assistance atarting on 05/24/2017 Mr. Duran is a pleasant 87yo man with h/o mild dementia, PEs first 30 years ago on warfarin since, paroxysmal afib, and previous fx L hip now after 05/24 1830 nonsyncopal fall with a R femoral neck fx by xray at OSH. No CP, sob, nausea, fevers or chills. He was on azithromcycin for bronchitis but with no significant cough now. 6/10 pain recognized in the R hip. Only recent med change was diltiazem to metoprolol which due to BP was hillary changed to metoprolol xl. of 64years is at the bedside assisting with history as the patient is hard of hearing. Objective Vital signs: Temperature 96.1 F L 05/30/17 07:21 Pulse Rate 73 05/30/17 08:02 Respiratory Rate 16 05/30/17 07:21 Blood Pressure 145/75 H 05/30/17 07:31 Pulse Oximetry 94 05/30/17 07:57 Rhythm: Normal Sinus Rhythm Height/Weight/BMI: Height 1.78 m Weight 92.3 kg Body Mass Index 28.8 - Constitutional Present: no acute distress, well nourished, well developed - Routine HEENT Exam Eye: Present: EOMI ENT: Present: mucous membranes moist, dentition normal - Routine Respiratory Exam Present: CTA bilaterally. Absent: wheezes - Routine Cardiovascular Exam Present: RRR. Absent: murmur - Routine Abdominal Exam Present: soft, normoactive bowel sounds, non distended. Absent: tenderness - Routine Extremities Exam Present: normal capillary refill - Routine Skin Exam Present: dry, warm - Routine Neurological Exam Present: alert, oriented X3, CN II-XII intact - Routine Lymphatic Exam Lymphatic: Absent: adenopathy - Routine Psychiatric Exam Present: normal affect Hospital Course This is a general summary of the patient's hospital course. For more details refer to the complete medical record. Hospital course: 05/26/17 14:53 Assessment: Right femoral neck fx chronic anticoagulation paroxysmal afib h/o PEs dementia leukocytosis chronic bronchitis HTN Plan: Resume warfarin now. Will see tomorrow whether lovenox 1mg/kg is OK with Dr. Macedo. Patient moved closer to nursing station to monitor for increased confusion. Continue O2, breathing tx as needed. Continue home meds for HTN, dementia. 05/27/17 10:25 Assessment: Right femoral neck fx chronic anticoagulation paroxysmal afib h/o PEs dementia leukocytosis chronic bronchitis HTN Plan: Warfarin resumed. INR 1.22 now. d/w Dr. Macedo. Will start heparin drip while INR subtherapeutic. If no bleeding issues could switch to therapeutic Lovenox in a couple of days. d/w pharmacy. PT/OT. Continuing O2, breathing tx as needed. Continue home meds for HTN, dementia. Supportive care and keep patient oriented to minimize confusion/delirium 05/28/17 Assessment: Right femoral neck fx s/p right hip hemiarthroplasty 05/26/17 Orthostatic hypotension (symptomatic) leukocytosis (stress rxn) mild normocytic anemia chronic anticoagulation paroxysmal afib h/o PEs dementia chronic bronchitis HTN Plan: POD #2 orthostatic with BP dropping from 104/67 sitting to 87/54 standing - will ask nurse to place 2nd IV line and infuse 500 mL NS bolus. Check BMP. A-fib with RVR with rates 110-120s. Received PRN dose of cardizem last night. On metoprolol succinate 25 mg daily. If HR does not improve with fluid bolus consider addition regular cardizem. Consult pharmacy for Coumadin dosing. Continue heparin to bridge; consider switching to Lovenox tomorrow if no evidence of bleeding. Labs: leukocytosis resolved; hgb slightly decreased but stable postop at 11.6. Bowel regimen: start Metamucil and Senna Plus; add dulcolax supp and MOM PRN. 05/29/17- Plan Spoke with nursing staff regarding aggressive bowel motivation. He was given the following this morning- Metamucil and senna plus. Patient has not had a bowel movement by this afternoon have asked nursing staff to utilize Dulcolax suppository Will discontinue Couch catheter Continue to monitor telemetry, patient has been in normal sinus rate in the 70s overnight. Cardizem was resumed at 120 milligrams daily Lovenox 140 milligrams subcutaneous daily bridge with warfarin, INR today 1.17. Continue with postoperative pain control. Given the run of atrial fibrillation RVR. Would like to monitor patient on oral Cardizem today. Hopeful for possible discharge to [facility] for SNU tomorrow. 05/30/17- Discharge Mina is seen and examined on day of discharge. He is alert and pleasant. He verbalizes an excited about being discharged. His is at the bedside. Patient's mentation is much more alert today than yesterday. He is eating well, Bowels are moving, and pain is well controlled. An is to be discharged to [facility] nursing facility for SNU. Will continue on Lovenox subcutaneous daily 6 days with bridge of Coumadin 5 milligrams daily. Would like INR to be drawn on 06/03/17. Patient will follow with his primary care provider, Dr. Clinton Foley as well as JAMIE Arcos with orthopedics in 3 weeks. Time spent with patient: discharge greater than 30 minutes DVT Prophylaxis: Lovenox, Coumadin Discharge Plan - Discharge Disposition Discharge Date: 05/30/17 Disposition: 03 To SNU Not [facility] [place] (SNF) *Condition: Stable *Reason For Visit: Right femoral neck fracture - Discharge Medications *Discharge Medications: New Bisacodyl Supp [Dulcolax] 10 mg RECTALLY DAILY PRN supp PRN Reason: Constipation Calcium 600 + D [Caltrate + D] 1 tab PO BID tablet DiltiaZEM CD [Cardizem Cd] 120 mg PO DAILY capsule Ergocalciferol (Vit. D2) [Vitamin D-2] 50,000 unit PO Q7D capsule Milk of Magnesia [Mom] 30 ml PO DAILY PRN udc PRN Reason: Constipation Senna + Docusate [Senna Plus Tablet] 1 tab PO BID tablet Enoxaparin Sodium [Lovenox] 140 mg SQ 1700 #6 syringe Hydrocodone/APAP 5/325 [[place] 5/325] 1 tab PO Q4H PRN #30 tab PRN Reason: Pain Continue Psyllium [Metamucil] 1 packet PO DAILY Metoprolol Succinate 25 mg PO DAILY Rivastigmine (Exelon 9.5 Mg Patch) 1 patch TD DAILY #0 Donepezil HCl 10 mg PO DAILY #0 Warfarin Sodium 5 mg PO DAILY #0 No Action Azithromycin *Ed Prepack* [Z-Rubin *Ed Prepack*] 250 mg PO DAILY Multivitamin - Discharge Packet/Instructions *Diet: Mechanical soft, syrup thick liquids *Activity: WBAT *Pain Management/Treatment: [place]cilla as needed for pain *Wound Care: none Additional Instructions: Lovenox SQ daily for 6 days. Coumadin 5 mg daily. Will need INR on 06/03/17. Cardizem is a new med for rate control. Aggressive bowel motivation *Expected Signs/Symptoms: Continued improvement in strength. Postoperatively *Notify Physician if: Fevers, chills, severe pain, bleeding or other concerning symptoms *During Business Hours Contact: Primary care provider *After Business Hours Contact: call center operations manager physician or emergency room *Pending Lab/Results: No Pending Lab - Referrals/Follow Up *Referrals/Follow Up: Clinton Foley [Family Provider] - (Follow up in 1 week. Will need INR on sunday 06/03.) Isrrael Parrish PA [Physician Recovery Room Rn] - 3 Weeks (Please schedule follow-up appointment for 3 weeks) - Patient Handouts Patient Handouts: Hip Fracture (GEN) - Dismissal Complete Discharge Instructions are:: Complete <Daniel Lucero - Last Filed: 05/30/17 11:12> Discharge Information Date of admission: 05/24/17 22:42 Attending Physician: Daniel Lucero MD Primary care physician: Clinton Foley Consults: 05/24/17 21:36 Physician Consult [CONS] Routine Consulting Provider: Sameer Macedo Reason For Exam: R femoral neck fracture Ordering Provider has Notified Orthopedic Rn: Yes 05/28/17 13:26 Physician Consult [CONS] Routine Consulting Provider: Naga Ventura Reason For Exam: Metabolic Bone Disease Ordering Provider has Notified Orthopedic Rn: No - Discharge Diagnosis (1) Hip fracture, right Status: Acute (2) Paroxysmal atrial fibrillation Status: Acute - Laboratory Labs: 05/30/17 04:36 05/30/17 04:36 Objective Vital signs: Temperature 96.1 F L 05/30/17 07:21 Pulse Rate 73 05/30/17 08:02 Respiratory Rate 16 05/30/17 07:21 Blood Pressure 145/75 H 05/30/17 07:31 Pulse Oximetry 94 05/30/17 07:57 Height/Weight/BMI: Height 1.78 m Weight 92.3 kg Body Mass Index 28.8 Hospital Course This is a general summary of the patient's hospital course. For more details refer to the complete medical record. - Attestation Narrative I Have independently interviewed and examined patient prior to discharge. Chart reviewed. Case discussed with my [employer]ENDER and patient's . Care plan developed with my supervision; agree with above. Doing well this morning. Bowels moving (patient very happy about that). Breathing well. No chest pain or palpitations. HR controlled. BP stable. Pain controlled. Lungs: clear bilaterally, no distress on RA CV: regular MSE: awake alert appropriate Plan: Medically stable for discharge to skilled care. See orders for details.
[2017-05-30] MEDS ORDERED: WARFARIN 6 MG TABLET PO SCH (12:00)
[2017-05-30] MEDS ORDERED: ENOXAPARIN 150 MG/ML INJECTION SQ SCH (12:00)
[2017-05-30 12:14] VITALS: BP 127/47; PULSE 61; RESP 20; TEMP 96.2; O2SAT 92
== END 2017-05-30 12:40 | DRG 470 ==
LOC: SUATTDRO 22:42 → SRG 22:42
PROVIDERS: ADMIT Hospitalist; ATTEND Hospitalist